=== PATIENT | male | born 1990 | race Caucasian/White ===

== ENCOUNTER 2016-06-14 13:47 | Emergency (ER) | payer MEDICAID, OTHER ==
[2016-06-14 14:30] LABS: % IMMATURE GRANULYOCYTES 0.5 % (0.0-1.1); ABSOLUTE IMMATURE GRANULOCYTES 0.03 10^3/uL (0.00-0.10); ADD DIFF? NO; ADD MORPH? NO; ADD SCAN? NO; ATYPICAL LYMPHOCYTE FLAG 0 (0-99); FRAGMENT RBC FLAG 0 (0-99); HEMATOCRIT 42.5 % (40.0-51.0); HEMOGLOBIN 14.5 g/dL (13.7-17.5); LEFT SHIFT FLG 0 (0-99); LIPEMIA HEMOLYSIS FLAG 90 (0-99); MEAN CELL HEMOGLOBIN 29.8 pg (27.9-34.1); MEAN CELL HEMOGLOBIN CONCENTR. 34.1 g/dL (32.4-36.7); MEAN CELL VOLUME 87.3 fL (81.5-99.8); MEAN PLATELET VOLUME 9.4 fL (8.7-11.7); PLATELET CLUMPS FLAG 10 (0-99); PLATELET COUNT 429 10^3/uL (150-400); RED BLOOD CELL COUNT 4.87 10^6/uL (4.40-6.38); RED CELL DISTRIBUTION WIDTH 12.1 % (11.5-15.2)
--- NOTE | 2016-06-14 14:30 | EDPHY ---
Mental Health General Previous Psychiatric History: previous inpatient psychiatric admission, substance abuse, depression Smoking Status: Never smoked Time Patient Placed on M1 Hold: 13:06 Time Medically Cleared for Psychiatric Evaluation: 15:11 Time of Transfer of Care: 17:00 To :: Chloe Course: patient remained stable over course of my shift <Leena Solis - Last Filed: 06/14/16 16:37> <Pawan Warner - Last Filed: 06/15/16 00:57> Course: patient remained stable over course of my shift <Clarence Corona - Last Filed: 06/23/16 15:00> Narrative: CHIEF COMPLAINT: M1 hold, suicidal HISTORY OF PRESENT ILLNESS: 25-year-old male presents emergency department on an M1 hold by police. Patient lives with his mom and dad and his mother was bringing him to the hospital today for suicidal statements when he escaped from the car, she called 911 and the police found him. The patient reported he had plans to buy a gun and shoot himself. The patient reports history of depression , states 1 week ago he started new medications, Latuda and an unknown other medication. Patient reports increasing depression since starting this medicine. He reports alcohol abuse though none for 2 weeks, he denies drug use. He denies auditory and visual hallucinations. Patient admits to suicidal ideations. REVIEW OF SYSTEMS: A comprehensive 10 point review of systems is otherwise negative aside from elements mentioned in the history of present illness. Physical Exam Gen: Alert and Oriented, NAD HEENT: PERRL, moist mucous membranes NECK: no meningismus CV: regular rate and regular rhythm PULM: CTAB, no wheezes ABDOMEN: soft, non tender to palpation, BS present BACK: No CVA tenderness NEURO: Neurologically grossly intact EXTREMITIES: normal appearing SKIN: Self-inflicted superficial lacerations to left wrist and forearm PSYCH: Flat affect, suicidal ideation, does not make eye contact (Leena Solis) Medical Decision Makin- Report passed on to Dr. Corona at the end of my shift pending eval. ( Leena Solis) This patient has been accepted at [facility]. Dr. Dillard has accepted the patient be appropriately transfer there. Emtala form filled out. (Pawan Warner) Patient has been evaluated by mental health and they would like to place him in a psychiatric unit. He is awaiting placement Dr. Sharpe at 2330. (Clarence Corona) - Objective Vital Signs: Initial Vital Signs Temperature (C) 36.5 C 06/14/16 13:53 Heart Rate 106 H 06/14/16 13:53 Respiratory Rate 20 06/14/16 13:53 Blood Pressure 98/59 L 06/14/16 13:53 O2 Sat (%) 98 06/14/16 13:53 O2 Delivery Mode Room Air Allergies/Adverse Reactions: No Known Allergies Allergy (Verified 06/14/16 13:52) Home Medications: Medication Instructions Recorded Hydroxyzine Pamoate [Vistaril] 25 mg PO Q4H PRN 06/14/16 Lurasidone HCl [Latuda] 40 mg PO DAILY@1800 06/14/16 Medications Given: Discontinued Medications Nicotine Polacrilex (Nicorette) 2 mg B ONCE ONE Stop: 06/14/16 18:01 Last Admin: 06/14/16 18:10 Dose: 2 mg Laboratory Results: Laboratory Results 06/14/16 14:05 06/14/16 14:05 06/14/16 06/14/16 14:10 14:05 WBC 6.38 10^3/uL (3.80-9.50) RBC 4.87 10^6/uL (4.40-6.38) Hgb 14.5 g/dL (13.7-17.5) Hct 42.5 % (40.0-51.0) MCV 87.3 fL (81.5-99.8) MCH 29.8 pg (27.9-34.1) MCHC 34.1 g/dL (32.4-36.7) RDW 12.1 % (11.5-15.2) Plt Count 429 H 10^3/uL (150-400) MPV 9.4 fL (8.7-11.7) Neut % (Auto) 63.0 % (39.3-74.2) Lymph % (Auto) 29.0 % (15.0-45.0) [place] % (Auto) 6.6 % (4.5-13.0) Eos % (Auto) 0.6 % (0.6-7.6) Baso % (Auto) 0.3 % (0.3-1.7) Nucleat RBC Rel Count 0.0 % (0.0-0.2) Absolute Neuts (auto) 4.02 10^3/uL (1.70-6.50) Absolute Lymphs (auto) 1.85 10^3/uL (1.00-3.00) Absolute Monos (auto) 0.42 10^3/uL (0.30-0.80) Absolute Eos (auto) 0.04 10^3/uL (0.03-0.40) Absolute Basos (auto) 0.02 10^3/uL (0.02-0.10) Absolute Nucleated RBC 0.00 10^3/uL (0-0.01) Immature Gran % 0.5 % (0.0-1.1) Immature Gran # 0.03 10^3/uL (0.00-0.10) Sodium 141 mEq/L (134-144) Potassium 4.6 mEq/L (3.5-5.2) Chloride 105 mEq/L (97-110) Carbon Dioxide 25 mEq/l (22-31) Anion Gap 11 mEq/L (8-16) BUN 12 mg/dL (7-23) Creatinine 0.9 mg/dL (0.7-1.3) Estimated GFR > 60 Glucose 91 mg/dL (70-100) Calcium 9.7 mg/dL (8.5-10.4) Urine Opiates Screen NEGATIVE (NEGATIVE) Urine Barbiturates NEGATIVE (NEGATIVE) Ur Phencyclidine Scrn NEGATIVE (NEGATIVE) Ur Amphetamine Screen NEGATIVE (NEGATIVE) U Benzodiazepines Scrn NEGATIVE (NEGATIVE) Urine Cocaine Screen NEGATIVE (NEGATIVE) U Marijuana (THC) Screen NEGATIVE (NEGATIVE) Ethyl Alcohol < 10 mg/dL (0-10) Departure <Leena Solis - Last Filed: 06/14/16 16:37> <Pawan Warner - Last Filed: 06/15/16 00:57> <Clarence Corona - Last Filed: 06/23/16 15:00> - Departure Disposition: Other Psych, Not [place] Clinical Impression: Severe major depression Condition: Fair Referrals: NONE *PRIMARY CARE P,. [Primary Care Provider] - As per Instructions
[2016-06-14 14:39] LABS: CALCIUM 9.7 mg/dL (8.5-10.4); CARBON DIOXIDE 25 mEq/l (22-31); CREATININE 0.9 mg/dL (0.7-1.3); ETHANOL SERUM < 10 mg/dL (0-10); GLOMERULAR FILTRATION RATE > 60; GLUCOSE 91 mg/dL (70-100); POTASSIUM 4.6 mEq/L (3.5-5.2); SODIUM 141 mEq/L (134-144)
[2016-06-14 14:56] LABS: ANION GAP 11 mEq/L (8-16); CHLORIDE 105 mEq/L (97-110)
[2016-06-14 17:36] VITALS: RESP 16; O2SAT 96
[2016-06-14] MEDS ORDERED: NICOTINE POLACRILEX 2 MG GUM B PRN (17:58)
[2016-06-14] MEDS ORDERED: NICOTINE POLACRILEX 2 MG GUM B ONE (18:00)
[2016-06-14 22:58] VITALS: PULSE 88; TEMP 98.1
[2016-06-15 02:21] VITALS: BP 113/84
== END 2016-06-15 02:57 ==
DX: F32.2 Major depressive disorder, single episode, severe without psychotic features (principal)
CPT/HCPCS: 80305; G0480

== ENCOUNTER 2016-07-12 20:41 | Emergency (ER) | payer MEDICAID ==
[2016-07-12] MEDS ORDERED: ONDANSETRON 4 MG/2 ML VIAL IVP ONE ×2 (21:04→21:20)
[2016-07-12] MEDS ORDERED: NS 1,000 ML IV ONE (21:05)
[2016-07-12 21:08] LABS: % IMMATURE GRANULYOCYTES 0.8 % (0.0-1.1); ABSOLUTE IMMATURE GRANULOCYTES 0.12 10^3/uL (0.00-0.10); ADD DIFF? NO; ADD MORPH? NO; ADD SCAN? NO; ATYPICAL LYMPHOCYTE FLAG 0 (0-99); FRAGMENT RBC FLAG 0 (0-99); HEMATOCRIT 46.3 % (40.0-51.0); HEMOGLOBIN 16.2 g/dL (13.7-17.5); LEFT SHIFT FLG 0 (0-99); LIPEMIA HEMOLYSIS FLAG 90 (0-99); MEAN CELL HEMOGLOBIN 29.7 pg (27.9-34.1); MEAN PLATELET VOLUME 9.1 fL (8.7-11.7); PLATELET CLUMPS FLAG 10 (0-99); PLATELET COUNT 504 10^3/uL (150-400); RED BLOOD CELL COUNT 5.45 10^6/uL (4.40-6.38); RED CELL DISTRIBUTION WIDTH 11.4 % (11.5-15.2)
--- NOTE | 2016-07-12 21:14 | EDPHY ---
H & P Stated Complaint: Caffeine pills, 200mg aprox 30 tabs, 1400hrs, SI - Personal History Current Tetanus/Diphtheria Vaccine: Unsure Tetanus Vaccine Date: within last couple of years - Medical/Surgical History Hx Asthma: No Hx Chronic Respiratory Disease: No Hx Diabetes: No Hx Cardiac Disease: No Hx Renal Disease: No Hx Cirrhosis: No Hx Alcoholism: No Hx HIV/AIDS: No Hx Splenectomy or Spleen Trauma: No Other PMH: ADD, depression. - Social History Smoking Status: Never smoked Time Seen by Provider: 07/12/16 21:01 Constitutional: Initial Vital Signs Temperature (C) 36.3 C 07/12/16 20:45 Heart Rate 138 H 07/12/16 20:45 Respiratory Rate 18 07/12/16 20:45 Blood Pressure 109/73 07/12/16 20:45 O2 Sat (%) 96 07/12/16 20:45 O2 Delivery Mode Room Air Allergies/Adverse Reactions: No Known Allergies Allergy (Verified 07/12/16 20:50) Home Medications: Medication Instructions Recorded Hydroxyzine Pamoate [Vistaril] 25 mg PO Q4H PRN 06/14/16 Lurasidone HCl [Latuda] 40 mg PO DAILY@1800 06/14/16 Medical Decision Making ED Course/Re-evaluation: CHIEF COMPLAINT: Psychiatric evaluation HISTORY OF PRESENT ILLNESS: This patient is a 25 year old male who presents to the Emergency Department following ingestion of thirty 200mg caffeine pills at approximately 1600 today. He reports that he took the pills in attempt to commit suicide. He has a history of depression and suicidal ideation and was recently seen in the ED on M1 hold in June. Upon arrival, he complains of nausea and vomiting. Denies chest pain or pressure, tremors, or additional complaints. REVIEW OF SYSTEMS: A 10 point review of systems was performed and is negative with the exception of the elements mentioned in the history of present illness. PHYSICAL EXAM: General Appearance: Alert, well hydrated, appropriate, and non-toxic appearing. Head: Atraumatic without scalp tenderness or obvious injury Eyes: Pupils equal, round, reactive to light and accommodation, EOMI, no trauma , no injection. Ears: Clear bilaterally, no perforation, normal landmarks Nose: Atraumatic, no rhinorrhea, clear. Throat: There is no erythema or exudates, no lesions, normal tonsils, mucus membranes moist. Neck: Supple, 2+ carotid upstroke, nontender, no lymphadenopathy. Respiratory: No retractions, no distress, no wheezes, and no accessory muscle use. Lungs are clear to auscultation bilaterally. Cardiovascular: Regular rate and rhythm, no murmurs, rubs, or gallops. Bilateral carotid, radial, dorsalis pedis, and posterior tibial pulses intact. Good capillary refill all extremities. Gastrointestinal: Abdomen is soft, nontender, non-distended, no masses, no rebound, no guarding, no peritoneal signs. Coffee ground emesis. Musculoskeletal: Normal active ROM of all extremities, atraumatic. Neurological: Alert, appropriate, and interactive. The patient has normal DTRs and non-focal cranial nerves, motor, sensory, and cerebellar exam. Skin: No rashes, good turgor, no nodules on palpation. Past medical history: Depression. Past surgical history: Denies. Family history: Non-contributory. Social history: Mother and father at bedside. EKG INTERPRETATION: The 12 lead EKG was interpreted by myself: Sinus tachycardia, rate 115; left anterior fascicular block; borderline prolonged QT interval.See hard copy and/ or "tracemaster" electronic copy for interpretation. DIFFERENTIAL DIAGNOSIS: The differential diagnosis for the patient's depression included but was not limited to functional and major depression, situational depression, medication side effect, drugs, and alcohol abuse. MEDICAL DECISION MAKING: Patient is in no acute distress and is hemodynamically stable. We are awaiting psychiatric team's evaluation. Patient has known history of psychiatric disorders and is here for evaluation. IV established. 8mg IV Zofran, 1mg IV Ativan, and 1L IV NS administered. ( John Preston) 0656: No acute events overnight. Patient Signed over to Dr. Roberts. Patient is medically cleared pending evaluation. (Pawan Warner) 7:00 a.m.-I assumed care of this patient at shift change. He. He was seen by mental health on M1 hold. They are working for inpatient disposition. 1pm--c/o sore throat after vomiting last night. Tylenol given. Calm and cooperative. Awaiting inpt placement. Signed over to Dr. Quintana at shift change. (Dali Roberts) Other Provider: Care assumed from Dr. Roberts at 2:40 p.m. with plan for inpatient psychiatric hospitalization for suicidal ideation and overdose. The patient will be transferred to [facility] for inpatient psychiatric hospital bed not available at this facility, in stable condition; accepting physician is Dr. Johnson. (Gerard Quintana) - Data Points Laboratory Results: Laboratory Results 07/13/16 01:15 07/13/16 01:00 Medications Given: Discontinued Medications Acetaminophen (Tylenol) 650 mg PO EDNOW ONE Stop: 07/13/16 08:53 Last Admin: 07/13/16 08:56 Dose: 650 mg Acetaminophen (Tylenol) 650 mg PO EDNOW ONE Stop: 07/13/16 13:23 Last Admin: 07/13/16 13:27 Dose: 650 mg Famotidine (Pepcid) 40 mg IVP EDNOW ONE Stop: 07/12/16 22:55 Last Admin: 07/12/16 23:15 Dose: 40 mg Sodium Chloride (Ns) 1,000 mls @ 0 mls/hr IV ONCE ONE PRN Reason: Wide Open Stop: 07/12/16 21:06 Last Admin: 07/12/16 21:20 Dose: 1,000 mls Sodium Chloride (Ns) 1,000 mls @ 0 mls/hr IV ONCE ONE PRN Reason: Wide Open Stop: 07/13/16 03:18 Last Admin: 07/13/16 03:22 Dose: 1,000 mls Lorazepam (Ativan Injection) 1 mg IVP EDNOW ONE Stop: 07/12/16 21:44 Last Admin: 07/12/16 21:45 Dose: 1 mg Lorazepam (Ativan) 1 mg PO EDNOW ONE Stop: 07/13/16 18:00 Last Admin: 07/13/16 18:00 Dose: 1 mg Ondansetron HCl (Zofran) 4 mg IVP EDNOW ONE Stop: 07/12/16 21:05 Last Admin: 07/12/16 21:00 Dose: 4 mg Ondansetron HCl (Zofran) 4 mg IVP EDNOW ONE Stop: 07/12/16 21:21 Last Admin: 07/12/16 21:20 Dose: 4 mg Ondansetron HCl (Zofran) 4 mg IVP EDNOW ONE Stop: 07/13/16 08:05 Last Admin: 07/13/16 08:12 Dose: 4 mg Departure - Departure Disposition: Other Psych, Not [place] Clinical Impression: Suicidal ideation Intentional caffeine overdose Qualifiers: Encounter type: initial encounter Qualified Code(s): T43.612A - Poisoning by caffeine, intentional self-harm, initial encounter Condition: Fair Referrals: UNSURE,OF PCP [Other] - As per Instructions Report Scribed for: John Preston Report Scribed by: Shelly Crespo Date of Report: 07/12/16 Time of Report: 21:14
[2016-07-12 21:22] LABS: ANION GAP 29 mEq/L (8-16); CALCIUM 10.5 mg/dL (8.5-10.4); CARBON DIOXIDE 14 mEq/l (22-31); CHLORIDE 100 mEq/L (97-110); CREATININE 1.1 mg/dL (0.7-1.3); ETHANOL SERUM < 10 mg/dL (0-10); GLOMERULAR FILTRATION RATE > 60; GLUCOSE 261 mg/dL (70-100); POTASSIUM 3.2 mEq/L (3.5-5.2); SALICYLATE < 1.0 mg/dL (2.0-20.0); SODIUM 143 mEq/L (134-144)
--- NOTE | 2016-07-12 21:33 | CPEKG ---
Heart Rate: 115 RR Interval: 522 P-R Interval: 148 QRSD Interval: 92 QT Interval: 360 QTC Interval: 498 P Jesse: -32 QRS Jesse: 248 T Wave Jesse: 48 EKG Severity - ABNORMAL ECG - EKG Impression: SINUS TACHYCARDIA EKG Impression: LEFT ANTERIOR FASCICULAR BLOCK EKG Impression: PROLONGED QT INTERVAL Electronically Signed By: John Preston 12-Jul-2016 23:04:11
[2016-07-12] MEDS ORDERED: LORazepam 2 MG/ML INJ IVP ONE (21:43)
[2016-07-12 22:00] LABS: MAGNESIUM 2.1 mg/dL (1.6-2.3)
[2016-07-12] MEDS ORDERED: FAMOTIDINE 20 MG/2 ML SDV IVP ONE (22:54)
[2016-07-13 00:14] VITALS: RESP 18
[2016-07-13 01:18] LABS: % IMMATURE GRANULYOCYTES 0.4 % (0.0-1.1); ABSOLUTE IMMATURE GRANULOCYTES 0.07 10^3/uL (0.00-0.10); ADD DIFF? NO; ADD MORPH? NO; ADD SCAN? NO; ATYPICAL LYMPHOCYTE FLAG 0 (0-99); FRAGMENT RBC FLAG 0 (0-99); HEMATOCRIT 42.3 % (40.0-51.0); HEMOGLOBIN 15.3 g/dL (13.7-17.5); LEFT SHIFT FLG 0 (0-99); LIPEMIA HEMOLYSIS FLAG 90 (0-99); MEAN CELL HEMOGLOBIN 30.7 pg (27.9-34.1); MEAN CELL HEMOGLOBIN CONCENTR. 36.2 g/dL (32.4-36.7); MEAN CELL VOLUME 84.8 fL (81.5-99.8); MEAN PLATELET VOLUME 9.2 fL (8.7-11.7); PLATELET CLUMPS FLAG 0 (0-99); PLATELET COUNT 428 10^3/uL (150-400); RED BLOOD CELL COUNT 4.99 10^6/uL (4.40-6.38); RED CELL DISTRIBUTION WIDTH 11.3 % (11.5-15.2)
[2016-07-13 01:22] LABS: ANION GAP 22 mEq/L (8-16); CALCIUM 10.2 mg/dL (8.5-10.4); CARBON DIOXIDE 15 mEq/l (22-31); CHLORIDE 109 mEq/L (97-110); CREATININE 0.9 mg/dL (0.7-1.3); GLOMERULAR FILTRATION RATE > 60; GLUCOSE 181 mg/dL (70-100); POTASSIUM 3.7 mEq/L (3.5-5.2); SALICYLATE < 1.0 mg/dL (2.0-20.0); SODIUM 146 mEq/L (134-144)
[2016-07-13] MEDS ORDERED: NS 1,000 ML IV ONE (03:17)
[2016-07-13] MEDS ORDERED: ONDANSETRON 4 MG/2 ML VIAL IVP ONE (08:04)
[2016-07-13] MEDS ORDERED: ACETAMINOPHEN 325 MG TAB PO ONE ×2 (08:52→13:22)
[2016-07-13] MEDS ORDERED: LORazepam 1 MG TAB ONE (17:57)
[2016-07-13] MEDS ORDERED: LORazepam 1 MG TAB PO ONE ×2 (17:59→22:21)
[2016-07-13 22:37] VITALS: BP 122/77; PULSE 104; TEMP 97.5; O2SAT 96
== END 2016-07-13 22:55 ==
DX: T43.612A Poisoning by caffeine, intentional self-harm, initial encounter (principal)
CPT/HCPCS: 80305; 96374; G0480; J2405

== ENCOUNTER 2017-07-23 01:54 | Observation (INO) | payer MEDICAID ==
[2017-07-23] MEDS ORDERED: NS 1,000 ML IV ONE ×3 (02:04→04:32)
[2017-07-23] MEDS ORDERED: LORazepam 2 MG/ML INJ IVP ONE ×4 (02:04→04:24)
--- NOTE | 2017-07-23 02:09 | CPEKG ---
Heart Rate: 124 RR Interval: 484 P-R Interval: 168 QRSD Interval: 86 QT Interval: 292 QTC Interval: 420 P [place]: 49 QRS [place]: 84 T Wave [place]: 19 EKG Severity - OTHERWISE NORMAL ECG - EKG Impression: SINUS TACHYCARDIA Electronically Signed By: John Preston 24-Jul-2017 21:33:54
[2017-07-23 02:14] LABS: PLATELET COUNT 370 10^3/uL (150-400)
--- NOTE | 2017-07-23 02:16 | EDPHY ---
H & P Stated Complaint: Sharp Chest pains after drinking 2 4 Lokos Time Seen by Provider: 07/23/17 01:55 HPI/ROS: HPI CHIEF COMPLAINT: Alcohol intoxication, chest pain, tachycardia HISTORY OF PRESENT ILLNESS: This patient 27-year-old male, history of schizophrenia, he presents emergency room with tachycardia and chest pain after drinking multiple 4 locos. It is unclear exactly how much she drank. The patient answers to most of my questions "I DONT KNOW" I asked him how long he has had chest pain or chest discomfort across his chest and he reports to me "I dont know" also reports that he does not know how much she drank. He tells me does not know of his medical problems. Due to this patient is a very poor historian. Past Medical History: Schizophrenia Past Surgical History: Denies recent surgery Social History: Admits to drinking large amount of alcohol and 4 LOCOS tonight unknown of drug use. Family History: ROS REVIEW OF SYSTEMS: Limited review of systems due to patient answering my questions with 'I DONT KNOW" Exam Constitutional intoxicated, smells of alcohol triage nursing summary reviewed, vital signs reviewed, awake/alert. Eyes normal conjunctivae and sclera, EOMI, PERRLA. HENT normal inspection, atraumatic, moist mucus membranes, no epistaxis, neck supple/ no meningismus, no raccoon eyes. Respiratory clear to auscultation bilaterally, normal breath sounds, no respiratory distress, no wheezing. Cardiovascular tachycardic regular rhythm, no murmur, no edema, distal pulses normal. Gastrointestinal soft, non-tender, no rebound, no guarding, normal bowel sounds, no distension, no pulsatile mass. Genitourinary no CVA tenderness. Musculoskeletal no midline vertebral tenderness, full range of motion, no calf swelling, no tenderness of extremities, no meningismus, good pulses, neurovascularly intact. Skin pink, warm, & dry, no rash, skin atraumatic. Neurologic awake, alert and oriented x 3, AAOx3, moves all 4 extremities equally, motor intact, sensory intact, CN II-XII intact, normal cerebellar, normal vision, normal speech. Psychiatric normal mood/affect. Heme/Lymph/Immune no lymphadenopathy. Differential Diagnosis: Includes but is not limited to in a particular order acute alcohol intoxication, dehydration, electrolyte abnormality, tachycardia due to stimulant use, acute coronary syndrome, PE, pneumonia, pneumothorax, drug intoxication Medical Decision Making: Plan for this patient IV establishment full environmental monitoring technician obtain EKG, check blood level of alcohol, drug screen, rule out acute coronary syndrome. Chest x-ray. Re-evaluation: EKG interpretation by me on record in [employer] system. Impression time of EKG 2:06 a.m., sinus tachycardia rate of 124. No ST elevation no ST depression or significant T-wave abnormalities. 0325: Serum alcohol level 161. Chest x-ray reviewed one-view shows cardiomegaly poor inspiratory effort and a widened mediastinum. Will proceed with CT angiogram of chest rule out aortic dissection pulmonary embolism or significant pericardial effusion. 0338: Despite 2 L of fluid and 2 mg Ativan IV still tachycardic. CT angiogram with contrast of the chest negative for aortic dissection or pulmonary embolism. Called to me by Dr. Tena. 0432: Patient has persistent tachycardia. It is improved with IV fluids and IV Ativan however despite multiple rounds of Ativan and multiple L of fluid the patient be admitted to the hospitalist service for ongoing tachycardia. He has a nonischemic EKG, negative troponin, negative D-dimer, CT angiogram of the chest does not show aortic dissection or PE. Plan will be for admission to the hospital service for tachycardia most likely induced by caffeine or a consumption of 4 locos 0448AM: Patient remains tachycardic. Drug screen pending. I question if he ingested other substances besides 4LOCOS. Patient be admitted to the hospital for tachycardia. 0509AM: Patient's heart rate down to 132. He is resting comfortably at this time. Admitted to the hospitalist service for persistent tachycardia. Drug screen pending at this time. Source: Patient, EMS - Personal History Current Tetanus/Diphtheria Vaccine: Unsure Current Tetanus Diphtheria and Acellular Pertussis (TDAP): Unsure Tetanus Vaccine Date: within last couple of years - Medical/Surgical History Hx Asthma: No Hx Chronic Respiratory Disease: No Hx Diabetes: No Hx Cardiac Disease: No Hx Renal Disease: No Hx Cirrhosis: No Hx Alcoholism: No Hx HIV/AIDS: No Hx Splenectomy or Spleen Trauma: No Other PMH: ADD, depression. - Social History Smoking Status: Never smoked Constitutional: Initial Vital Signs Temperature (C) 37 C 07/23/17 01:54 Heart Rate 126 H 07/23/17 01:54 Respiratory Rate 22 H 07/23/17 01:54 Blood Pressure 138/95 H 07/23/17 01:54 O2 Sat (%) 95 07/23/17 01:54 O2 Delivery Mode Room Air Allergies/Adverse Reactions: No Known Allergies Allergy (Verified 07/12/16 20:50) Home Medications: Medication Instructions Recorded Dextroamphetamine/Amphetamine 30 mg PO DAILY 07/23/17 [Adderall 30 mg Tablet] Dextroamphetamine/Amphetamine 20 mg PO HS 07/23/17 [Dextroamp-Amphetamin 20 mg Tab] Multivitamins [Multivitamin (*)] 1 each PO DAILY 07/23/17 [place]-3/Dha/Epa/Fish Oil [[place]-3 1 each PO BID 07/23/17 Fish Oil Softgel] Venlafaxine HCl [Venlafaxine HCl 300 mg PO DAILY 07/23/17 ER] lamoTRIgine [LaMICtal] 50 mg PO DAILY 07/23/17 Medical Decision Making - Diagnostics Imaging Results: Imaging Impressions Chest/Thorax CTA 07/23/17 03:27 Impression: 1. Normal CT angiogram of the thoracic aorta and pulmonary arterial system. 2. No pericardial effusion or mediastinal lymphadenopathy. The study was performed as an emergency on-call case and discussed by telephone with Dr. Pawan Warner at 0422 hrs. The final interpretation is concordant with the original communication. - Data Points Laboratory Results: Laboratory Results 07/23/17 02:00 07/23/17 02:00 Medications Given: Discontinued Medications Sodium Chloride (Ns) 1,000 mls @ 0 mls/hr IV EDNOW ONE; Wide Open PRN Reason: Protocol Stop: 07/23/17 02:05 Last Admin: 07/23/17 02:12 Dose: 1,000 mls Sodium Chloride (Ns) 1,000 mls @ 0 mls/hr IV ONCE ONE PRN Reason: Wide Open Stop: 07/23/17 02:21 Last Admin: 07/23/17 02:33 Dose: 1,000 mls Sodium Chloride (Ns) 1,000 mls @ 250 mls/hr IV ONCE ONE Stop: 07/23/17 08:31 Last Admin: 07/23/17 07:35 Dose: 1,000 mls Lamotrigine (Lamictal) 50 mg PO DAILY TORREY Stop: 01/19/18 12:59 Last Admin: 07/23/17 14:05 Dose: 50 mg Lorazepam (Ativan Injection) 1 mg IVP EDNOW ONE Stop: 07/23/17 02:05 Last Admin: 07/23/17 02:11 Dose: 1 mg Lorazepam (Ativan Injection) 1 mg IVP EDNOW ONE Stop: 07/23/17 02:21 Last Admin: 07/23/17 02:30 Dose: 1 mg Lorazepam (Ativan Injection) 1 mg IVP EDNOW ONE Stop: 07/23/17 03:36 Last Admin: 07/23/17 03:44 Dose: 1 mg Lorazepam (Ativan Injection) 1 mg IVP EDNOW ONE Stop: 07/23/17 04:25 Last Admin: 07/23/17 04:28 Dose: 1 mg Venlafaxine HCl (Effexor Xr) 300 mg PO DAILY TORREY Stop: 01/19/18 12:59 Last Admin: 07/23/17 14:05 Dose: 300 mg Departure - Departure Disposition: Home, Routine, Self-Care Clinical Impression: Tachycardia, Anxiety Alcohol intoxication Qualifiers: Complication of substance-induced condition: uncomplicated Qualified Code(s): F10.920 - Alcohol use, unspecified with intoxication, uncomplicated Condition: Good
[2017-07-23 02:23] LABS: INR 0.97 (0.83-1.16); PROTIME(PATIENT) 13.1 SEC (12.0-15.0)
[2017-07-23 02:24] LABS: CREATINE KINASE 166 IU/L (0-224)
[2017-07-23] MEDS ORDERED: IOPAMIDOL (ISOVUE 370) 100 ML BTL IV ONE (03:39)
[2017-07-23] MEDS ORDERED: LORazepam 2 MG/ML INJ IVP PRN (04:32)
[2017-07-23] MEDS ORDERED: ONDANSETRON 4 MG/2 ML VIAL IVP PRN (04:32)
[2017-07-23] MEDS ORDERED: ONDANSETRON DISINTEGRATING 4 MG TAB PO PRN (04:32)
[2017-07-23] MEDS ORDERED: ACETAMINOPHEN 325 MG TAB PO PRN (04:32)
--- NOTE | 2017-07-23 05:27 | PDGENHP ---
History and Physical - Chief Complaint Tachycardia - History of Present Illness 27 yo M w/ hx of depression and polysubstance abuse presents with tachycardia and agitation. Patient states he drank 2 Four [place] today. He denies taking any stimulants aside from his prescribed Adderall. Review of previous d/c summary describes hx of cocaine and methamphetamine abuse. Patient complains of racing heart and anxiety currently. He is somewhat agitated and difficult to redirect. History Information - Allergies/Home Medication List Allergies/Adverse Reactions: No Known Allergies Allergy (Verified 07/12/16 20:50) Home Medications: Hydroxyzine Pamoate [Vistaril] 25 mg PO Q4H PRN 06/14/16 [Last Taken Unknown] Lurasidone HCl [Latuda] 40 mg PO DAILY@1800 06/14/16 [Last Taken Unknown] Dextroamphetamine/Amphetamine [Adderall 30 mg Tablet] 07/23/17 [Last Taken Unknown] Lamictal 07/23/17 [Last Taken Unknown] [place]-3 07/23/17 [Last Taken Unknown] I have personally reviewed and updated: family history, medical history - Past Medical History Additional medical history: Depression - Family History Additional family history: Denies family hx of cardiac disorders - Social History Smoking Status: Never smoked Review of Systems Review of Systems: ROS: 10pt was reviewed & negative except for what was stated in HPI & below Physical Exam Physical Exam: Temp Pulse Resp BP Pulse Ox 37 C 136 H 22 H 121/85 H 94 07/23/17 01:54 07/23/17 05:15 07/23/17 05:15 07/23/17 05:15 07/23/17 05:15 Constitutional: obese, unkempt Eyes: PERRL, EOMI, other (Dilated pupils) Ears, Nose, Mouth, Throat: moist mucous membranes, no oral mucosal ulcers Cardiovascular: no murmur, rub, or gallop, tachycardia Respiratory: no respiratory distress, no rales or rhonchi Gastrointestinal: normoactive bowel sounds, soft, non-tender abdomen Skin: warm, normal color Neurologic: AAOx3, CN II-XII Intact Psychiatric: interacting appropriately, anxious Lab Data & Imaging Review 07/23/17 02:00 07/23/17 02:00 WBC 7.46 10^3/uL (3.80-9.50) 07/23/17 02:00 RBC 5.67 10^6/uL (4.40-6.38) 07/23/17 02:00 Hgb 16.9 g/dL (13.7-17.5) 07/23/17 02:00 Hct 48.8 % (40.0-51.0) 07/23/17 02:00 MCV 86.1 fL (81.5-99.8) 07/23/17 02:00 MCH 29.8 pg (27.9-34.1) 07/23/17 02:00 MCHC 34.6 g/dL (32.4-36.7) 07/23/17 02:00 RDW 13.6 % (11.5-15.2) 07/23/17 02:00 Plt Count 370 10^3/uL (150-400) 07/23/17 02:00 MPV 8.9 fL (8.7-11.7) 07/23/17 02:00 Neut % (Auto) 46.7 % (39.3-74.2) 07/23/17 02:00 Lymph % (Auto) 38.2 % (15.0-45.0) 07/23/17 02:00 [place] % (Auto) 13.3 % (4.5-13.0) H 07/23/17 02:00 Eos % (Auto) 0.8 % (0.6-7.6) 07/23/17 02:00 Baso % (Auto) 0.5 % (0.3-1.7) 07/23/17 02:00 Nucleat RBC Rel Count 0.0 % (0.0-0.2) 07/23/17 02:00 Absolute Neuts (auto) 3.48 10^3/uL (1.70-6.50) 07/23/17 02:00 Absolute Lymphs (auto) 2.85 10^3/uL (1.00-3.00) 07/23/17 02:00 Absolute Monos (auto) 0.99 10^3/uL (0.30-0.80) H 07/23/17 02:00 Absolute Eos (auto) 0.06 10^3/uL (0.03-0.40) 07/23/17 02:00 Absolute Basos (auto) 0.04 10^3/uL (0.02-0.10) 07/23/17 02:00 Absolute Nucleated RBC 0.00 10^3/uL (0-0.01) 07/23/17 02:00 Immature Gran % 0.5 % (0.0-1.1) 07/23/17 02:00 Immature Gran # 0.04 10^3/uL (0.00-0.10) 07/23/17 02:00 PT 13.1 SEC (12.0-15.0) 07/23/17 02:00 INR 0.97 (0.83-1.16) 07/23/17 02:00 APTT 25.7 SEC (23.0-38.0) 07/23/17 02:00 D-Dimer < 0.27 ug/mLFEU (0.00-0.50) 07/23/17 02:00 Sodium 144 mEq/L (135-145) 07/23/17 02:00 Potassium 3.7 mEq/L (3.5-5.2) 07/23/17 02:00 Chloride 101 mEq/L (97-110) 07/23/17 02:00 Carbon Dioxide 28 mEq/l (22-31) 07/23/17 02:00 Anion Gap 15 mEq/L (8-16) 07/23/17 02:00 BUN 3 mg/dL (7-23) L 07/23/17 02:00 Creatinine 0.8 mg/dL (0.7-1.3) 07/23/17 02:00 Estimated GFR > 60 07/23/17 02:00 Glucose 95 mg/dL (70-100) 07/23/17 02:00 Calcium 8.9 mg/dL (8.5-10.4) 07/23/17 02:00 Magnesium 1.9 mg/dL (1.6-2.3) 07/23/17 02:00 Total Bilirubin 0.4 mg/dL (0.1-1.4) 07/23/17 02:00 Conjugated Bilirubin 0.4 mg/dL (0.0-0.5) 07/23/17 02:00 Unconjugated Bilirubin 0.0 mg/dL (0.0-1.1) 07/23/17 02:00 AST 69 IU/L (17-59) H 07/23/17 02:00 ALT 124 IU/L (21-72) H 07/23/17 02:00 Alkaline Phosphatase 133 IU/L (38-126) H 07/23/17 02:00 Creatine Kinase 166 IU/L (0-224) 07/23/17 02:00 CK-MB (CK-2) Fraction 0.97 ng/mL (0.00-3.19) 07/23/17 02:00 Troponin I < 0.012 ng/mL (0.000-0.034) 07/23/17 02:00 NT-Pro-B Natriuret Pep < 11 pg/mL (0-125) 07/23/17 02:00 Total Protein 7.3 g/dL (6.3-8.2) 07/23/17 02:00 Albumin 4.4 g/dL (3.5-5.0) 07/23/17 02:00 Lipase 34 IU/L (23-300) 07/23/17 02:00 Salicylates < 1.0 mg/dL (2.0-20.0) L 07/23/17 02:00 Acetaminophen < 10 mcg/mL (10-30) L 07/23/17 02:00 Ethyl Alcohol 161 mg/dL (0-10) H 07/23/17 02:00 Imaging Review: CTA chest (Prelim) Normal vasculature Bands of atelactasis bibasilar Spoke w Dr Sharpe at 422 Finer Visualized and Interpreted EKG results: Yes EKG Interpretation: Positive for: other (Sinus tachycardia) Assessment & Plan Assessment: 27 yo M w/ hx of depression and polysubstance abuse presents with tachycardia. Plan: 1. Sinus tachycardia - Most likely 2/2 ingestion. Patient admits to ETOH ingestion as well as his prescribed. He denies ingestion of any other stimulant at this time. HR 130s at the time of my evaluation. - Admit to PCU for observation - S/p 2L IVF in ED, will give an additional liter now - Monitor on telemetry - Utox 2. Hx depression - On multiple psychiatric medications, need reconciliation. 3. Hx polysubstance abuse - Per last d/c summary, has hx of cocaine and methamphetamine abuse. Diet - Regular Code - Full Ppx - Low risk Dispo - Admit under observation status
[2017-07-23 10:47] VITALS: BP 136/98; PULSE 139; RESP 22; TEMP 98.4; O2SAT 95
[2017-07-23] MEDS ORDERED: VENLAFAXINE XR 150 MG CAP PO SCH (13:00)
[2017-07-23] MEDS ORDERED: lamoTRIgine 25 MG TAB PO SCH (13:00)
--- NOTE | 2017-07-23 16:57 | PDDCSUM ---
Discharge Summary Discharge Summary: HPI/Hospital Course: the pt is a 27 yo male who was admitted with tachycardia and malaise. He was monitored overnight, provided IVF, and feels much better. He is however still with some tachycardia. He admits to ETOH use, heavy, last use was last night. He has a tremor. We discussed his ETOH intake and I offered further hospitalization, but he does not want this. He is requesting discharge. W/u thus far has been negative. He does have a hx of Depression with prior hospitalization inpatient psych at [facility] reportedly for suicide attempt. He reports that he is not suicidal. He is not homocidal. He does not appear to be a threat. He wants to go home. He lives with roommates. Given that he feels better and refuses further treatment, he will be discharged. No new meds have been provided. No home medication changes have been made. DDX: 1. Sinus tachycardia likely from ingestion vs ETOH WD 2. Hx depression - On multiple psychiatric medications, all meds continued 3. Hx polysubstance abuse - Per last d/c summary, has hx of cocaine and methamphetamine abuse. Meds: See med rec f/u: with pcp in one week total time spent on d/c is 35 mins
[2017-07-24] MEDS ORDERED: MULTIVITAMINS 1 EACH TAB PO SCH (09:00)
[2017-07-24] MEDS ORDERED: OMEGA-3 FATTY ACIDS 1,000 MG CAP PO SCH (09:00)
== END 2017-07-23 16:18 | disposition home or self-care (01) ==
LOC: EDUNIT# → F2W 05:21
PROVIDERS: ADMIT Student in an Organized Health Care Education/Training Program; ATTEND Family Medicine
DX: R00.0 Tachycardia, unspecified (principal); F10.920 Alcohol use, unspecified with intoxication, uncomplicated; E86.9 Volume depletion, unspecified; R53.81 Other malaise; Y90.6 Blood alcohol level of 120-199 mg/100 ml; F20.9 Schizophrenia, unspecified; F41.9 Anxiety disorder, unspecified; F32.9 Major depressive disorder, single episode, unspecified
CPT/HCPCS: 71045; 71275; 93005; G0378; 80307; 96374; G0480; J2060; Q9967

== ENCOUNTER 2017-08-18 21:03 | Emergency (ER) | payer MEDICAID ==
--- NOTE | 2017-08-18 21:22 | CPEKG ---
Heart Rate: 112 RR Interval: 536 P-R Interval: 148 QRSD Interval: 86 QT Interval: 324 QTC Interval: 443 P [place]: 36 QRS [place]: 77 T Wave [place]: 8 EKG Severity - OTHERWISE NORMAL ECG - EKG Impression: SINUS TACHYCARDIA Electronically Signed By: Alison Ellsworth 18-Aug-2017 23:06:37
--- NOTE | 2017-08-18 21:31 | EDPHY ---
HPI/HX/ROS/PE/MDM Narrative: CHIEF COMPLAINT: Chest pain HISTORY OF PRESENT ILLNESS: The patient is a 27 y/o male with a history of bipolar disorder arriving via EMS , complaining of intermittent chest pain, onset at 10:00, 12 hours ago after he began to drink the alcoholic drink FourLoko as well as a liquid nicotine. On , 1 month ago, he was seen in this emergency department for similar symptoms and was admitted for tachycardia. Yesterday, he felt normal. Several hours ago he began to feel short of breath. Tonight the chest pain only lasts for several seconds and the position of it changes. He has had prior episodes of chest pain, but not of shortness of breath. Admits to drinking alcohol multiple times a week, denies illicit drug use. Denies history of diabetes or liver problems. Takes medications as directed as his medications are administered at the home he lives in. No fever, chills, palpitations, abdominal pain, vomiting, diarrhea, urinary complaints, headache, lightheadedness. The patient is a poor historian as he answers in short one word answers, or by saying "I don't know". Prior medical records reviewed including ED visit with Dr. Warner on 07/23/17. REVIEW OF SYSTEMS: Aside from elements discussed in the HPI, a comprehensive 10-point review of systems was reviewed and is negative. PAST MEDICAL HISTORY: Bipolar disorder, ADD, anxiety, developmental disorder, schizophrenia SOCIAL HISTORY: Lives in [place] at a "host home", single, not employed VITAL SIGNS: Reviewed by me GENERAL: Somewhat anxious, dry mucous membranes, seems to be slightly restless. No respiratory distress. HEENT: Atraumatic. Eyes: No icterus, no injection. Mouth: dry mucous membranes. No erythema or lesions. Neck: supple with no adenopathy. LUNGS: Clear to auscultation bilaterally, no wheezes, rhonchi or rales. CARDIAC: Tachycardic with a rate of 110, no rubs, murmurs or gallops. ABDOMEN: Soft, nontender, nondistended, bowel sounds normal. BACK: No CVA tenderness. EXTREMITIES: No trauma. No edema. Range of motion is normal throughout. NEURO: Alert and oriented, grossly nonfocal. SKIN: Warm and dry, no rash. PSYCHIATRIC: Normal mentation, no agitation. Portions of this note were transcribed by a medical management specialist. I personally performed a history, physical exam, medical decision making, and confirmed accuracy of information the transcribed note. ED Course: The patient is a 27 y/o male with a history of bipolar disorder arriving via EMS , presenting with intermittent fleeting, electric shock like chest pain, onset at 10:00, 12 hours ago, after he began to drink the alcoholic drink FourLoko as well as a nicotine liquid. On exam he has very dry mucous membranes and is tachycardic. Labs, EKG, and chest x-ray ordered. 1L IV NS given. 2120: 12-LEAD EKG: Please see the full report in [facility]. My interpretation: Sinus tachycardia with a rate of 112. 2157: I reviewed patient's chest x-ray; no clear cause for sob. Does have some atelectasis. Radiologist reading pending. 4: Reassessed patient and discussed imaging and laboratory findings. Patient continues to decline IV hydration. Denies prior hx of airways disease. Denies hx of PE. We discussed the fact that he is quite tachycardic as well as hypertensive. He insists that he has not used any illicit drugs other than alcohol this evening. He reports that he feels anxious from being in the emergency department. He was given 1 mg of clonazepam. Patients heart rate declined after receiving clonazepam. Reassessed; no further shortness of breath. No chest pain. Doubt PE. No ilicit drugs in urine except amphetamines which he is prescribed. Again, recommended hydration and further observation, patient declines. States he feels fine. Wishes to be discharged. MDM: After history and physical examination, the differential for patient's presenting complaints was considered including but not limited to electrolyte abnormalities, dehydration, drug or alcohol abuse, polysubstance abuse, drug or alcohol withdrawal, renal insufficiency, pulmonary infectious causes. - Data Points Imaging Results: CXR: Impression: Poor inspiratory effort, with mild atelectasis in the left lung base. Dictated By: Daniel Aragon MD Imaging: I viewed and interpreted images myself Laboratory Results: Laboratory Results 08/18/17 21:04 08/18/17 21:04 Medications Given: Discontinued Medications Clonazepam (Klonopin) 1 mg PO EDNOW ONE Stop: 08/18/17 22:49 Last Admin: 08/18/17 23:01 Dose: 1 mg Sodium Chloride (Ns) 1,000 mls @ 0 mls/hr IV ONCE ONE; Wide Open PRN Reason: Protocol Stop: 08/18/17 21:39 Last Admin: 08/18/17 21:58 Dose: Not Given General Time Seen by Provider: 08/18/17 21:20 Initial Vital Signs: Initial Vital Signs Temperature (C) 37.4 C 08/18/17 21:03 Heart Rate 110 H 08/18/17 21:03 Respiratory Rate 24 H 08/18/17 21:03 Blood Pressure 144/112 H 08/18/17 21:03 O2 Sat (%) 95 08/18/17 21:03 O2 Delivery Mode Room Air Allergies/Adverse Reactions: No Known Allergies Allergy (Verified 07/12/16 20:50) Home Medications: Medication Instructions Recorded Dextroamphetamine/Amphetamine 30 mg PO DAILY 07/23/17 [Adderall 30 mg Tablet] Dextroamphetamine/Amphetamine 20 mg PO HS 07/23/17 [Dextroamp-Amphetamin 20 mg Tab] Multivitamins [Multivitamin (*)] 1 each PO DAILY 07/23/17 [place]-3/Dha/Epa/Fish Oil [[place]-3 1 each PO BID 07/23/17 Fish Oil Softgel] Adderall 10 mg Tablet 08/18/17 traZODone 08/18/17 Departure - Departure Disposition: Home, Routine, Self-Care Clinical Impression: Tachycardia, SOB (shortness of breath), Palpitations Instructions: Anxiety (ED), Tachycardia (ED) Additional Instructions: Follow-up with your primary doctor within 72 hours. Return to the Emergency Department for fever, chest pain, shortness of breath, increasing pain or other worsening of condition. Referrals: [facility],. [Clinic] - As per Instructions Report Scribed for: Alison Ellsworth Report Scribed by: Caity Nowak Date of Report: 08/18/17 Time of Report: 21:21
[2017-08-18] MEDS ORDERED: NS 1,000 ML IV ONE (21:38)
[2017-08-18 21:42] LABS: PLATELET COUNT 418 10^3/uL (150-400)
[2017-08-18] MEDS ORDERED: clonazePAM 1 MG TAB PO ONE (22:48)
[2017-08-18 23:27] VITALS: BP 142/92
== END 2017-08-19 00:02 | disposition home or self-care (01) ==
LOC: EDUNIT#
DX: R00.0 Tachycardia, unspecified (principal)
CPT/HCPCS: 80305; G0480

== ENCOUNTER 2017-09-13 17:06 | Emergency (ER) | payer MEDICAID ==
[2017-09-13] MEDS ORDERED: ALPRAZolam 0.25 MG TAB PO ONE ×2 (17:31→18:18)
--- NOTE | 2017-09-13 17:45 | EDPHY ---
H & P Stated Complaint: Racing heart. hx of caffine abuse. "wants a benzo" Time Seen by Provider: 09/13/17 17:08 HPI/ROS: CHIEF COMPLAINT: Rapid heart rate HISTORY OF PRESENT ILLNESS: 27-year-old male with anxiety and polysubstance abuse presents with rapid heart rate. He drank excessive caffeine this morning and then started feeling anxious. Associated with a rapid heart rate. He tried to relax, but the rapid heart rate 80 more anxious. He has been seen in this emergency department for similar symptoms previously. He is requesting Xanax. Not taking medications for anxiety currently. REVIEW OF SYSTEMS: complete 10 point ROS negative except at noted in the HPI - Personal History Current Tetanus/Diphtheria Vaccine: Yes Current Tetanus Diphtheria and Acellular Pertussis (TDAP): Yes Tetanus Vaccine Date: within last couple of years - Medical/Surgical History Hx Asthma: No Hx Chronic Respiratory Disease: No Hx Diabetes: No Hx Cardiac Disease: No Hx Renal Disease: No Hx Cirrhosis: No Hx Alcoholism: No Hx HIV/AIDS: No Hx Splenectomy or Spleen Trauma: No Other PMH: ADD, depression - Social History Smoking Status: Never smoked - Physical Exam Exam: General Appearance: Alert, anxious Eyes: Pupils equal and round, no conjunctival pallor ENT, Mouth: Mucous membranes moist Neck: Normal inspection Respiratory: Lungs are clear to auscultation Cardiovascular: Regular tachycardia Gastrointestinal: Abdomen is soft and nontender Neurological: A&O, nonfocal, normal gait Skin: Warm and dry, no rash Extremities: Normal inspection Psychiatric: Anxious Constitutional: Initial Vital Signs Temperature (C) 37.1 C 09/13/17 17:16 Heart Rate 113 H 09/13/17 17:16 Respiratory Rate 16 09/13/17 17:16 Blood Pressure 144/83 H 09/13/17 17:16 O2 Sat (%) 99 09/13/17 17:16 O2 Delivery Mode Room Air Allergies/Adverse Reactions: No Known Allergies Allergy (Verified 09/13/17 17:14) Home Medications: Medication Instructions Recorded Dextroamphetamine/Amphetamine 30 mg PO DAILY 07/23/17 [Adderall 30 mg Tablet] Dextroamphetamine/Amphetamine 20 mg PO HS 07/23/17 [Dextroamp-Amphetamin 20 mg Tab] Multivitamins [Multivitamin (*)] 1 each PO DAILY 07/23/17 [place]-3/Dha/Epa/Fish Oil [[place]-3 1 each PO BID 07/23/17 Fish Oil Softgel] Adderall 10 mg Tablet 08/18/17 traZODone 08/18/17 ALPRAZolam [Xanax 0.5 MG (*)] 0.5 mg PO TID PRN #6 tab 09/13/17 Effexor Xr 09/13/17 Klonopin 09/13/17 [place] 09/13/17 Medical Decision Making - Diagnostics EKG Interpretation: EKG interpreted by me reveals sinus tachycardia, 118, nonspecific T-wave changes in the inferior leads. Interpretation: Borderline EKG. ED Course/Re-evaluation: This patient presents with sinus tachycardia after caffeine abuse. Stat EKG reveals no evidence of ischemia. Xanax 0.5 mg orally x 2 doses given. Old medical record reviewed. He has had prior ED presentations with similar symptoms. I do not feel that further workup is indicated in this pt. Differential Diagnosis: Differential diagnosis includes though it is not limited to pneumonia, pneumothorax, pulmonary embolism, aortic dissection, pericarditis, acute coronary syndrome. - Data Points Medications Given: Discontinued Medications Alprazolam (Xanax) 0.5 mg PO EDNOW ONE Stop: 09/13/17 17:32 Last Admin: 09/13/17 17:35 Dose: 0.5 mg Alprazolam (Xanax) 0.5 mg PO EDNOW ONE Stop: 09/13/17 18:19 Last Admin: 09/13/17 18:33 Dose: 0.5 mg Departure - Departure Disposition: Home, Routine, Self-Care Clinical Impression: Anxiety, Caffeine abuse Condition: Good Instructions: Anxiety (ED) Additional Instructions: Avoid caffeinated beverages. Referrals: Nicolasa Tamayo MD [[facility] [place] Primary Care Provider] - As per Instructions (Call to make an appointment.) Prescriptions: ALPRAZolam [Xanax 0.5 MG (*)] 0.5 mg PO TID PRN #6 tab PRN Reason: Anxiety
--- NOTE | 2017-09-13 17:50 | CPEKG ---
Heart Rate: 118 RR Interval: 508 P-R Interval: 164 QRSD Interval: 90 QT Interval: 324 QTC Interval: 455 P [place]: 36 QRS [place]: 83 T Wave [place]: -5 EKG Severity - BORDERLINE ECG - EKG Impression: SINUS TACHYCARDIA EKG Impression: BORDERLINE T ABNORMALITIES, INFERIOR LEADS Electronically Signed By: Dali Roberts 13-Sep-2017 23:08:41
[2017-09-13 18:43] VITALS: BP 127/101
== END 2017-09-13 18:44 | disposition home or self-care (01) ==
LOC: EDUNIT#
DX: F41.9 Anxiety disorder, unspecified (principal); F15.10 Other stimulant abuse, uncomplicated

== ENCOUNTER 2017-09-14 07:59 | Emergency (ER) | payer MEDICAID ==
--- NOTE | 2017-09-14 08:33 | CPEKG ---
Heart Rate: 93 RR Interval: 645 P-R Interval: 148 QRSD Interval: 90 QT Interval: 352 QTC Interval: 438 P [place]: 60 QRS [place]: 4 T Wave [place]: 22 EKG Severity - NORMAL ECG - EKG Impression: SINUS RHYTHM Electronically Signed By: Alison Ellsworth 14-Sep-2017 16:27:22
[2017-09-14] MEDS ORDERED: LORazepam 2 MG/ML INJ IVP ONE (08:38)
[2017-09-14] MEDS ORDERED: NS 1,000 ML IV ONE (08:38)
[2017-09-14 09:08] LABS: PLATELET COUNT 367 10^3/uL (150-400)
--- NOTE | 2017-09-14 09:46 | EDPHY ---
HPI/HX/ROS/PE/MDM Narrative: CHIEF COMPLAINT: "I drank too much coffee" HISTORY OF PRESENT ILLNESS: This patient is a 27 year old male with history of depression and polysubstance abuse presenting following caffeine consumption. He was evaluated in this emergency department yesterday for similar symptoms including tachycardia and chest pain, also due to caffeine consumption. He was instructed to discontinue caffeine. Last night, he consumed 3-4 20oz portions of instant coffee from 12am- 7am. He denies consuming any other substances. Patient developed chest pain, which waxed and waned throughout the night but has since resolved. He also took his prescribed medication this morning including Adderall and Effexor. No alcohol sine Monday. Denies illicit drug use. Currently, he denies any chest pain. He feels mildly short of breath. He denies visual or auditory hallucinations. Denies depression, suicidal or homicidal ideation. No fever, chills, palpitations, vomiting, diarrhea, urinary complaints, headache, lightheadedness. REVIEW OF SYSTEMS: Aside from elements discussed in the HPI, a comprehensive 10-point review of systems was reviewed and is negative. PAST MEDICAL HISTORY: Depression. Adderall 15mg, 10mg. Effexor 75mg, 150mg. SOCIAL HISTORY: Psychiatrist Dr Ahmadi. Patient currently resides in a host home. Medications are controlled by the host home staff. VITAL SIGNS: Reviewed by me GENERAL: Slightly overweight, resting comfortably in no respiratory distress. HEENT: Atraumatic. Eyes: No icterus, no injection. JAZZY, pupils 6 mm and reactive. Mouth: dry mucous membranes. No erythema or lesions. Neck: supple with no adenopathy. LUNGS: Clear to auscultation bilaterally, no wheezes, rhonchi or rales. CARDIAC: Mild tachycardia. No rubs, murmurs or gallops. ABDOMEN: Soft, nontender, nondistended, bowel sounds normal. BACK: No CVA tenderness. EXTREMITIES: No trauma. No edema. Range of motion is normal throughout. NEURO: Alert and oriented, grossly nonfocal. SKIN: Warm and dry, no rash. No diaphoresis. PSYCHIATRIC: Normal mentation, no agitation. Portions of this note were transcribed by a medical technical writer. I personally performed a history, physical exam, medical decision making, and confirmed accuracy of information the transcribed note. ED Course: 27 y/o male presents following episodes of chest pain and shortness of breath secondary to caffeine consumption. Plan for EKG, CXR, labs including CBC, chemistries, Troponin, lipase. Plan to administer 1L IV NS. 12-LEAD EKG: Please see the full report in [facility]. My interpretation: Sinus rhythm Laboratory studies unremarkable. Troponin negative. 9:55 Reviewed CXR. No acute abnormalities. Plan to discharge patient home in good condition. Encouraged patient to discontinue caffeine use. Follow up and return precautions discussed. He is comfortable with this plan. MDM: Differential diagnoses for the patient's symptom complex was considered including but not limited to polysubstance abuse, alcohol withdrawal, amphetamine use, stimulant use, cardiac strain, cardiac ischemia, electrolyte abnormality. - Data Points Imaging Results: CXR: Impression: Persistent hypoventilatory features and diskoid subsegmental atelectasis at the left lung base, unchanged from 08/18/2017. Dictated By: Javon Callejas MD Imaging: I viewed and interpreted images myself Laboratory Results: Laboratory Results 09/14/17 09:00 09/14/17 09:00 Medications Given: Discontinued Medications Sodium Chloride (Ns) 1,000 mls @ 0 mls/hr IV ONCE ONE; Wide Open PRN Reason: Protocol Stop: 09/14/17 08:39 Last Admin: 09/14/17 09:04 Dose: 1,000 mls Lorazepam (Ativan Injection) 1 mg IVP EDNOW ONE Stop: 09/14/17 08:39 Last Admin: 09/14/17 08:54 Dose: Not Given General Time Seen by Provider: 09/14/17 08:26 Initial Vital Signs: Initial Vital Signs Temperature (C) 36.7 C 09/14/17 08:17 Heart Rate 108 H 09/14/17 08:17 Respiratory Rate 20 09/14/17 08:17 Blood Pressure 148/102 H 09/14/17 08:17 O2 Sat (%) 100 09/14/17 08:17 O2 Delivery Mode Room Air Allergies/Adverse Reactions: No Known Allergies Allergy (Verified 09/14/17 08:13) Home Medications: Medication Instructions Recorded Dextroamphetamine/Amphetamine 30 mg PO DAILY 07/23/17 [Adderall 30 mg Tablet] Dextroamphetamine/Amphetamine 20 mg PO HS 07/23/17 [Dextroamp-Amphetamin 20 mg Tab] Multivitamins [Multivitamin (*)] 1 each PO DAILY 07/23/17 [place]-3/Dha/Epa/Fish Oil [[place]-3 1 each PO BID 07/23/17 Fish Oil Softgel] Adderall 10 mg Tablet 08/18/17 ALPRAZolam [Xanax 0.5 MG (*)] 0.5 mg PO TID PRN #6 tab 09/13/17 Effexor Xr 09/13/17 Klonopin 09/13/17 [place] 09/13/17 Departure - Departure Disposition: Home, Routine, Self-Care Clinical Impression: Anxiety, Caffeine abuse Condition: Good Instructions: Anxiety (ED), Caffeine Use (ED) Additional Instructions: 1. Please discontinue caffeine use. 2. Stay well hydrated. 3. Follow up with your primary care provider. 4. Return to the emergency department for fever, chest pain, shortness of breath , or other worsening of condition. Referrals: Juan David Mcdaniel, [Doctor of Osteopathy] - As per Instructions Report Scribed for: Alison Ellsworth Report Scribed by: Lillian Mcfadden Date of Report: 09/14/17 Time of Report: 09:45
[2017-09-14 10:27] VITALS: BP 153/93
== END 2017-09-14 10:27 | disposition home or self-care (01) ==
DX: F15.10 Other stimulant abuse, uncomplicated (principal); F41.9 Anxiety disorder, unspecified; E86.9 Volume depletion, unspecified

== ENCOUNTER 2017-11-09 13:55 | Emergency (ER) | payer MEDICAID ==
--- NOTE | 2017-11-09 14:18 | EDPHY ---
HPI/HX/ROS/PE/MDM Narrative: CHIEF COMPLAINT: Confusion, insomnia HPI: The patient is a 27 y/o male with anxiety and depression arriving voluntarily with his father for evaluation of confusion onset this morning. History is primarily provided by the patient's father at bedside. He is on multiple medications for anxiety and depression and most nights lives in a host home in [facility] that administers these medications for him. Last night he stayed with his parents and by this morning seemed very confused to his father. Per father, he was "out of it" "almost like he's on something, but he's on probation so I don't think that's possible." He says, "he either didn't take his meds or took too many," but doesn't think that's possible since medications are administered daily at the host home. The patient is also not sleeping and his father describes repeatedly walking in and out of the house every few minutes throughout the day. He has a history of prior panic attacks that his father says happen when he mixes large quantities of alcohol and caffeine. His father took him to [facility] today, but he was not formally evaluated and was referred to the ED due to suspected drug use. The patient denies drug use and pain anywhere. He reports feeling confused and can't tell me the last time he slept, but is A&Ox4. REVIEW OF SYSTEMS: Aside from elements discussed in the HPI, a comprehensive 10-point review of systems was reviewed and is negative. PMH: Anxiety, depression, panic attacks. Admission to [facility] for 10 months last year. SOCIAL HISTORY: Father at bedside. Lives in host home in [facility]. Not employed. PHYSICAL EXAM: General:Patient is alert, in no acute distress. ENT:Eyes are normal to inspection. ENT inspection normal. Neck: Normal inspection. Full range of motion. Respiratory:No respiratory distress. Breath sounds normal bilaterally. Cardiovascular: Regular rate and rhythm. Strong peripheral pulses. Normal cap refill. Abdomen:The abdomen is nontender to palpation. There are no peritoneal signs. Back: Normal to inspection. No tenderness to palpation. Skin: Normal color. No rash. Warm and dry. Extremities: Normal appearance. Full range of motion. Neuro: Oriented x3. Normal motor function. Normal sensory function. No pronator drift. Face symmetric. Normal [id number]. (Dameon Layton) ED Course: This is a 27 y/o male with a history of anxiety and depression with prior long- term hospitalizations for this who presents voluntarily with his father for evaluation of confusion and insomnia. He is A&Ox4, but minimally contributes to history. He cannot tell me the last time he slept and I suspect his insomnia is contributing to current symptoms. He has a normal neuro exam. Plan for standard psychiatric labs and mental health evaluation. 1500: Patient care signed out to Dr. Bryant at shift change. (Dameon Layton ) MDM: Patient's care transferred to me at 3:00 p.m. 6:30 p.m. the patient attempted to walk out. He is here voluntarily. Because of reports of confusion I am concerned that he does not have capacity at this point. I asked security to bring him back and will place him on a detainer. He has been partially evaluated. 8:15 p.m. the patient has been evaluated. They feel that he is at the beginning of a manic episode. Dad feels confident that he can handle the patient at home if he can just get some sleep. Patient is prescribe sonata as well as Klonopin and Xanax but they do not think he has been taking them. Psychiatrist requests that we prescribe him Seroquel for a sleep aid for tonight and they will re-evaluate him tomorrow. (Fabricio Bryant) - Data Points Laboratory Results: Laboratory Results 11/09/17 14:50 11/09/17 14:50 11/09/17 11/09/17 11/09/17 15:20 14:50 14:50 WBC 8.68 10^3/uL 10^3/uL (3.80-9.50) RBC 5.06 10^6/uL 10^6/uL (4.40-6.38) Hgb 15.2 g/dL g/dL (13.7-17.5) Hct 44.8 % % (40.0-51.0) MCV 88.5 fL fL (81.5-99.8) MCH 30.0 pg pg (27.9-34.1) MCHC 33.9 g/dL g/dL (32.4-36.7) RDW 11.9 % % (11.5-15.2) Plt Count 332 10^3/uL 10^3/uL (150-400) MPV 9.6 fL fL (8.7-11.7) Neut % (Auto) 63.8 % % (39.3-74.2) Lymph % (Auto) 24.8 % % (15.0-45.0) [place] % (Auto) 10.6 % % (4.5-13.0) Eos % (Auto) 0.3 % L % (0.6-7.6) Baso % (Auto) 0.3 % % (0.3-1.7) Nucleat RBC Rel Count 0.0 % % (0.0-0.2) Absolute Neuts (auto) 5.53 10^3/uL 10^3/uL (1.70-6.50) Absolute Lymphs (auto) 2.15 10^3/uL 10^3/uL (1.00-3.00) Absolute Monos (auto) 0.92 10^3/uL H 10^3/uL (0.30-0.80) Absolute Eos (auto) 0.03 10^3/uL 10^3/uL (0.03-0.40) Absolute Basos (auto) 0.03 10^3/uL 10^3/uL (0.02-0.10) Absolute Nucleated RBC 0.00 10^3/uL 10^3/uL (0-0.01) Immature Gran % 0.2 % % (0.0-1.1) Immature Gran # 0.02 10^3/uL 10^3/uL (0.00-0.10) Sodium 142 mEq/L mEq/L (135-145) Potassium 4.2 mEq/L mEq/L (3.3-5.0) Chloride 106 mEq/L mEq/L (97-110) Carbon Dioxide 23 mEq/l mEq/l (22-31) Anion Gap 13 mEq/L mEq/L (8-16) BUN 12 mg/dL mg/dL (7-23) Creatinine 0.8 mg/dL mg/dL (0.7-1.3) Estimated GFR > 60 Glucose 84 mg/dL mg/dL (70-100) Calcium 9.1 mg/dL mg/dL (8.5-10.4) Urine Opiates Screen NEGATIVE (NEGATIVE) Urine Barbiturates NEGATIVE (NEGATIVE) Ur Phencyclidine Scrn NEGATIVE (NEGATIVE) Ur Amphetamine Screen NEGATIVE (NEGATIVE) U Benzodiazepines Scrn NEGATIVE (NEGATIVE) Urine Cocaine Screen NEGATIVE (NEGATIVE) U Marijuana (THC) Screen NEGATIVE (NEGATIVE) Ethyl Alcohol < 10 mg/dL mg/dL (0-10) Medications Given: Discontinued Medications Quetiapine Fumarate (Seroquel) 100 mg PO ONCE ONE Stop: 11/09/17 20:19 Last Admin: 11/09/17 20:49 Dose: 100 mg General Time Seen by Provider: 11/09/17 14:10 Initial Vital Signs: Initial Vital Signs Temperature (C) 36.7 C 11/09/17 14:04 Heart Rate 98 11/09/17 14:04 Respiratory Rate 16 11/09/17 14:04 Blood Pressure 135/83 H 11/09/17 14:04 O2 Sat (%) 96 11/09/17 14:04 O2 Delivery Mode Room Air Allergies/Adverse Reactions: No Known Allergies Allergy (Verified 11/09/17 14:04) Home Medications: Medication Instructions Recorded Dextroamphetamine/Amphetamine 30 mg PO DAILY 07/23/17 [Adderall 30 mg Tablet] Dextroamphetamine/Amphetamine 20 mg PO HS 07/23/17 [Dextroamp-Amphetamin 20 mg Tab] Multivitamins [Multivitamin (*)] 1 each PO DAILY 07/23/17 [place]-3/Dha/Epa/Fish Oil [[place]-3 1 each PO BID 07/23/17 Fish Oil Softgel] Adderall 10 mg Tablet 08/18/17 ALPRAZolam [Xanax 0.5 MG (*)] 0.5 mg PO TID PRN #6 tab 09/13/17 Effexor Xr 09/13/17 Klonopin 09/13/17 Sonata 09/13/17 Departure - Departure Disposition: Home, Routine, Self-Care Clinical Impression: Bipolar 1 disorder Insomnia Qualifiers: Insomnia type: unspecified Qualified Code(s): G47.00 - Insomnia, unspecified Condition: Fair Instructions: Bipolar Disorder (ED), Insomnia (ED) Referrals: NONE *PRIMARY CARE P,. [Primary Care Provider] - As per Instructions Report Scribed for: Dameon Layton Report Scribed by: Brigette Dacosta Date of Report: 11/09/17 Time of Report: 14:18 Physician Review and Approval Statement: Portions of this note were transcribed by an ED scribe. I personally performed the history, physical exam, and medical decision making; and confirm the accuracy of the information in the transcribed note.
[2017-11-09 15:01] LABS: PLATELET COUNT 332 10^3/uL (150-400)
[2017-11-09 15:46] VITALS: BP 164/85
[2017-11-09] MEDS ORDERED: QUEtiapine FUMARATE 100 MG TAB PO ONE (20:18)
== END 2017-11-09 20:50 | disposition home or self-care (01) ==
DX: F31.9 Bipolar disorder, unspecified (principal); G47.00 Insomnia, unspecified
CPT/HCPCS: 80305; G0480

== ENCOUNTER 2017-12-29 13:30 | Inpatient (IN) | payer OTHER, MEDICAID ==
--- NOTE | 2017-12-29 15:58 | ASMTLCPROG ---
Notes Note: Notes: Pt's admission coordinated with and [facility] for inpt BH and ECT admission under the care of Dr. Pinto. Date Signed: 12/29/2017 03:58 PM Electronically Signed By:Shala Montilla
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
[2017-12-29] MEDS ORDERED: MAG HYDROX/AL HYDROX/SIMETH 30 ML UDCUP PO PRN (19:51)
[2017-12-29] MEDS ORDERED: OLANZapine DISINTEGR 10 MG TAB PO PRN (19:51)
[2017-12-29] MEDS ORDERED: LORazepam 0.5 MG TAB PO PRN (19:51)
[2017-12-29] MEDS ORDERED: MAGNESIUM HYDROXIDE 30 ML UDCUP PO PRN (19:51)
[2017-12-29] MEDS: QUEtiapine FUMARATE 300 MG TAB PO SCH (20:52)
[2017-12-29] MEDS: MELATONIN 3 MG TAB PO SCH (20:53)
--- NOTE | 2017-12-30 08:56 | ASMTBHMTP ---
Master Treatment Plan Master Treatment Plan Answers: Depressed Mood with for: Suicidal Ideation Date: 12/29/2017 Diagnosis on Admission: Schizoaffective Disorder, Depressive Type (295.70 (F25.1) Expected length of stay: 3-5 days Reason for admission: Notes: Pt is a 27 year old single, male who was admitted to the [facility] 3N unit [facility] pt [facility] for ECT treatment. Pt was originally admitted to [facility] due to increasing depression and suicidal thoughts. Pt has had a hx of both manic and depressive episodes and currently presenting with chronic SI. Pt had expressed feeling safe in a controlled setting but does not feel he could keep himself safe outside of the hospital. Pt also reported severe anxiety and paranoia about people reading his thoughts. Pt had stated he was having continued thoughts of suicide and unspecified thoughts of harming others though states he will not act on these thoughts. Per medical reports pt has a hx of agitation, behavioral problems, confusion, decreased concentration, dysphoric mood, sleep disturbance and suicidal ideations. Pt was determined to be nervous/ anxious and hyperactive. Recent evaluation on 12/20 pt determined to be dressed appropriately, calm, withdrawn, somnolent, flat affect, with poor insight and judgment. Patient's stated presenting problems: Notes: "Client would not answer." Patient's goals for treatment: Notes: "Client would not answer." Patient's strengths: Notes: "Client would not answer." Identify supports outside of hospital: Notes: "Client would not answer." Discharge criteria: Notes: Suicidal Ideation will resolve and patient will have a plan to safely manage recurrent suicidal ideation Initial disposition plan/considerations: Notes: "Client would not answer." Master Treatment Plan Required Signatures Psychiatrist signature: Answers: Psychiatrist: RN on-shift signature: Answers: RN: Patient signature: Answers: Patient: Date Signed: 12/30/2017 08:55 AM Electronically Signed By:Nathanael Ding
--- NOTE | 2017-12-30 09:11 | GCON ---
[f rep st] CONSULTATION DATE OF CONSULTATION: 12/30/2017 REFERRING PHYSICIAN: Leann Webb MD REASON FOR CONSULTATION: Medical management. HISTORY OF PRESENT ILLNESS: A 27-year-old male with a history of depression, polysubstance abuse, wh o was admitted to [address] as a transfer patient from inpatient behavior unit at [facility] for ECT treatment. He was originally admitted to [facility] due to increasing depression and suicida l thoughts. He has a history of both manic and depressive episodes, currently presenting with chroni c suicidal ideations. He feels safe when he is in a controlled environment, but does not think he co uld keep himself out of harm if outside the hospital. He has had increased anxiety and paranoia that people reading his thoughts. Has had suicidal ideations, but would not expand on a plan. He was at [facility] 11/05 to 12/23. During my interview, says that he has been in a fog. Denies any fevers, chills, or sweats. No nause a, vomiting, or diarrhea. REVIEW OF SYSTEMS: I completed a 10-point review of systems, negative, except as noted in HPI. PAST MEDICAL HISTORY: Depression, history of polysubstance abuse, history of manic episodes, history of suicidal ideation. PAST SURGICAL HISTORY: Denies. SOCIAL HISTORY: Smokes tobacco. Lives with his parents. Denies alcohol or illicits. FAMILY HISTORY: Noncontributory. LABORATORY DATA: None. PHYSICAL EXAMINATION: VITAL SIGNS: Temperature 37.1, blood pressure 125/77. Heart rate is in the 8 0s to 100s, respiration rate 14, 95%. GENERAL: He is lying in his bed, covered, in no acute distres s. He is answering questions appropriately. HEENT: PERRLA. Moist mucous membranes. CV: Would no t participate in full exam. LUNGS: Would not cooperate. GI: Would not cooperate. : No [place]. MUSCULOSKELETAL: He is moving all extremities. NEUROLOGIC: 2 through 12 intact. PSYCH: He is al ert and oriented, answering questions. Flat affect. ASSESSMENT AND PLAN: 1. Chronic suicidal ideations: Transferred from [facility] for ECT treatment per behavior health team. Seroquel, Zyprexa, and Ativan as needed. 2. Tobacco abuse: Declined nicotine patch. 3. Deep vein thrombosis prophylaxis: Ambulatory. Thank you for this consult. We will follow along if any questions. /[id number]/MODL
[2017-12-30] MEDS: MELATONIN 3 MG TAB PO SCH (19:30)
[2017-12-30] MEDS: QUEtiapine FUMARATE 300 MG TAB PO SCH (19:48)
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
--- NOTE | 2017-12-31 14:54 | ASMTCMCOM ---
CM Note CM Note Notes: Pt. was lying in bed when CC approached. Pt. reports feeling "okay". Pt. stated he slept "good". Pt. reports eating well and not attending groups because he is "not interested". Pt.. reports no issues with his current medications. PT. denied SI, HI, AVH and paranoia. Pt. stated he already has outpatient providers. Pt. presents as passive, guarded, quiet, mumbling at times, a bit anxious and staring at CC. Staff report pt. sleeping at least 9 hours and isolating in his room. Pt. prefers to be called "Ryan". Date Signed: 12/31/2017 02:53 PM Electronically Signed By:Monse Pantoja
--- NOTE | 2017-12-31 16:58 | SOAPPROG ---
SOAP Progress Note Assessment/Plan: Assessment: 27yo CM with Schizoaffective d/o and Borderline Intellectual functioning (IQ 70 ) and admitted as [facility] [place] [facility] [place]. 12/31/17 17:52 per staff, slept over 9hr. has been isolative, guarded. out for meals, otherwise resting or sleeping in room. has been denying SI or thoughts to harm others. compliant with meds, seroquel 300mg hs and melatonin 3mg hs. no prns required today. Upon interview later this afternoon, pt was in his room resting in bed. disheveled. stated he has been sleeping most of the day, altho has been up for meals. MSE: in bed, recently awake. decr eye contact, but speech nml rate/vol, more spontaneous than on initial interview yesterday. Restricted affect, and mood is : "not doing well" this evening b/c of negative thoughts, suicidal thoughts. declined to share details. Stated, "I hope so" regarding if he could be safe on unit. denied AH or VH, just ruminative neg thoughts. denied thoughts to harm others. i/j impaired. cognition seemed intact. PLAN: discussed med options- patient was readily willing to have seroquel 50mg added as prn for anxiety/disturbing thoughts, also to incr HS dose. feels this would help, and came to RN window shortly after to request medication. With this med change, patient did state he felt he could be safe on unit and t/w staff if felt otherwise. Start Quetiapine 50mg TID PRN Incr Quetiapine to 350mg qhs check VS this pm, none noted yesterday or this am cont on SP,AP, safety precautions. Plan ECT consult in AM Objective: Vital Signs Temp Pulse Resp BP Pulse Ox 37.1 C 104 H 14 125/77 H 95 12/29/17 18:09 12/29/17 18:09 12/29/17 18:09 12/29/17 18:09 12/29/17 18:09 - Time Spent With Patient Time Spent With Patient: 10min - Pending Discharge Pending Discharge Within 24 Hours: No Pending Discharge Within 48 Hours: No ICD10 Worksheet Patient Problems: Problems Problem Status Onset Alcohol intoxication Acute Anxiety Acute Tachycardia Acute
[2017-12-31] MEDS ORDERED: QUEtiapine FUMARATE 50 MG TAB PO PRN (19:16)
[2017-12-31] MEDS: QUEtiapine FUMARATE 300 MG TAB PO SCH (19:43)
[2017-12-31] MEDS: QUEtiapine FUMARATE 50 MG TAB PO SCH (19:44)
[2017-12-31] MEDS: MELATONIN 3 MG TAB PO SCH (19:44)
[2018-01-01] MEDS: QUEtiapine FUMARATE 50 MG TAB PO PRN (15:56)
--- NOTE | 2018-01-01 17:04 | SOAPPROG ---
SOFELIPE Progress Note Assessment/Plan: Assessment: Plan: 01/01/18 17:04 Schizoaffective D/o: Pt states he is motivated to do ECT, though is resistant to necessary pre-treatment tests. Will continue to foster therapeutic alliance. Will proceed with ECT if he demonstrates willingness to comply. Continue meds as currently written except change PRN SQL to q4 from TID. Subjective: Pt seen, discussed with staff, history and chart reviewed. He refused EKG this morning, insisting he did one at . reports pt refused. He agrees to repeat here, but not in time to treat today. Has been isolative, primarily sleeping in his room. Offers no c/o's. States he is motivated to do ECT as it helped him before. Disheveled, lying in bed. Engages well, maintains eye contact. Affect is blunted, stable, approp. Mood is "not too good." TP is generally linear, though abbreviated. TC reveals likely paranoia, some poverty. Objective: Vital Signs Temp Pulse Resp BP Pulse Ox 37.1 C 93 14 108/60 95 12/29/17 18:09 12/31/17 18:00 12/31/17 18:00 12/31/17 18:00 12/31/17 18:00 - Time Spent With Patient Time Spent With Patient: 25" ICD10 Worksheet Patient Problems: Problems Problem Status Onset Alcohol intoxication Acute Anxiety Acute Tachycardia Acute
[2018-01-01] MEDS: QUEtiapine FUMARATE 50 MG TAB PO SCH (20:10)
[2018-01-01] MEDS: MELATONIN 3 MG TAB PO SCH (20:10)
[2018-01-01] MEDS: QUEtiapine FUMARATE 300 MG TAB PO SCH (20:10)
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
[2018-01-02] MEDS: QUEtiapine FUMARATE 50 MG TAB PO PRN (17:03)
[2018-01-02] MEDS: QUEtiapine FUMARATE 50 MG TAB PO SCH (18:56)
[2018-01-02] MEDS: QUEtiapine FUMARATE 300 MG TAB PO SCH (18:56)
[2018-01-02] MEDS: MELATONIN 3 MG TAB PO SCH (18:58)
[2018-01-03] MEDS ORDERED: ONDANSETRON DISINTEGRATING 4 MG TAB PO PRN (04:00)
[2018-01-03] MEDS ORDERED: NS 1,000 ML IV PRN (04:00)
[2018-01-03] MEDS ORDERED: CITRIC ACID/SODIUM CITRATE 30 ML UDCUP PO PRN (04:00)
--- NOTE | 2018-01-03 13:04 | CPEKG ---
Test Reason : OPEN Blood Pressure : / mmHG Vent. Rate : 069 BPM Atrial Rate : 070 BPM P-R Int : 132 ms QRS Dur : 088 ms QT Int : 388 ms P-R-T Axes : 050 099 001 degrees QTc Int : 416 ms SINUS RHYTHM Non specific ST/T wave changes are new in comparison to prior ECG Confirmed by Akira Olson ([id number]) on 01/03/2018 1:04:17 PM Referred By: Confirmed By:Akira Olson
[2018-01-03] MEDS ORDERED: fentaNYL 100 MCG/2 ML INJ ONE (13:48)
[2018-01-03] MEDS ORDERED: ETOMIDATE 20 MG/10 ML VIAL ONE (13:48)
[2018-01-03] MEDS ORDERED: MIDAZOLAM 2 MG/2 ML VIAL ONE (13:48)
[2018-01-03] MEDS ORDERED: GLYCOPYRROLATE 0.2 MG/1 ML VIAL ONE (13:48)
[2018-01-03] MEDS ORDERED: ONDANSETRON 4 MG/2 ML VIAL ONE (13:48)
[2018-01-03] MEDS ORDERED: ROCURONIUM 50 MG/5 ML VIAL ONE (13:52)
[2018-01-03] MEDS: NICOTINE POLACRILEX 2 MG GUM B PRN ×2 (14:16→17:35)
[2018-01-03] MEDS ORDERED: SUCCINYLCHOLINE CHLORIDE 200 MG/10 ML VIAL ONE (14:18)
[2018-01-03] MEDS ORDERED: CITRIC ACID/SODIUM CITRATE 30 ML UDCUP ONE (14:55)
[2018-01-03] MEDS ORDERED: ONDANSETRON DISINTEGRATING 4 MG TAB ONE (14:55)
--- NOTE | 2018-01-03 15:28 | PDECTPN ---
ECT Progress Note Patient Problems: Problems Problem Status Onset Code Alcohol intoxication Acute F10.929 Anxiety Acute F41.9 Tachycardia Acute R00.0 Date: 01/03/18 ECT provider: Daniel Pinto Anesthesia: Heraclio Pearson Stimulus dose (%): 35 Pulse width: 0.3 ECT EMG (sec): 50 ECT EEG (sec): 106 ECT treatment type: unilateral QIDS-SR Total Score: 16 QIDS-SR Question #12 Score: 3 MMSE Total Score (Max = 21): 21 Next ECT date: 01/05/18 Next ECT time: 06:45 O/P psychiatrist follow up: direct communication Home medications: Medication Instructions Recorded Melatonin [Melatonin 3 MG (*)] 3 mg PO HS 01/02/18 QUEtiapine FUMARATE [Seroquel 300 mg PO HS 01/02/18 300mg (*)] Medication review: completed Current treatment plan: acute phase Treatment plan frequency: 3 times per week ECT narrative: Pt is seen for initial acute course treatment. He is agreeable to ECT and is able to discuss the plan of care with myself and then with treatment team. Continues to isolate in his room, states he doesn't like to interact with others. No aggression or behavioral problems noted. Mood remains "really bad. " He states, "I hope ECT will help me feel better." Affect is dysphoric, blunted, stable. Mood is "bad." TP linear. TC reveals possible paranoia. Underwent RUL ECT without complication. Will continue acute course treatment.
--- NOTE | 2018-01-03 15:32 | PDHPUP ---
History & Physical Update H&P update statement: This history and physical update is based on an assessment of the patient which was completed after admission or registration (within 24 hours), but prior to the surgery/procedure. H&P update: H&P reviewed & patient examined, no change in patient's condition since H&P completed
--- NOTE | 2018-01-03 15:32 | PDANEPAE ---
ECT Pre Anesthetic Evaluation Allergies/Adverse Reactions: No Known Allergies Allergy (Verified 11/09/17 14:04) Patient ID confirmed: Yes H&P reviewed: Yes Pre-anesthetic history reviewed: Yes Heart: regular rate and rhythym, no murmur, rub, or gallop Lungs: no respiratory distress, clear to auscultation Mallampati Score: Class 2 ASA Status: III Home Medications: Medication Instructions Recorded Melatonin [Melatonin 3 MG (*)] 3 mg PO HS 01/02/18 QUEtiapine FUMARATE [Seroquel 300 mg PO HS 01/02/18 300mg (*)] Medication review: completed Patient interviewed: Yes Patient examined: Yes Anesthetic plan discussed with patient: Yes Anesthetic risks discussed with patient: Yes ECT Pre-Anesthetic History - Height & Weight Height: 170.18 cm Weight: 90.718 kg BMI: 31.35 - Anesthesia History Hx Anesthesia Complications (with details): No Family Hx Anesthesia Complications: NO - Tobacco/Alcohol/Drug Use Smoking Status: Current every day smoker Total Number Of Years As A Smoker: 5 Hx Drug/Substance Abuse: No Alcohol Use: Yes Alcohol Quantity: 2 drinks per day - Prior Surgeries/Hospitalizations Prior Surgeries: NO Prior Medical Hospitalizations: No - Pulmonary History ECT Hx Asthma: No Hx Abnormal Chest X-Ray: No Hx Oxygen in Use at Home: No - Cardiovascular History Hx Hypertension: No Currently Uses Hypertension Medication: No Hx Arrhythmias: No Hx Palpitations: No Hx Chest Pain: No Hx Coronary Artery / Peripheral Vascular Disease: No Hx Blood Clot: No - Neurologic History Hx Cerebrovascular Accident: No Hx CT Scan Or MRI Of The Brain: No Hx Epilepsy, Convulsions, Seizures, Or Blackouts: No Hx Frequent Or Severe Headaches: No Hx Numbness: No Hx Neurologic Disorder: No - Dental History Current Dental Issues: None - Endocrine History Hx Diabetes: No Current Daily Insulin Injections: No Hx Thyroid Problems: No - Renal/Urologic History Hx Renal Disorders: No Hx Urinary Tract Problems: No - Liver History Hx Hepatic Disorders: No - Cancer History Hx Cancer: No - Hematology History Hx Unexplained Bleeding Of Any Type: No Hx Ease Of Bruising: No Hx Anemia: No - Gastrointestinal History Hx Gastroesophogeal Reflux Disease: No Hx Ulcers: No Hx Hiatal Hernia: No Hx Difficulty Swallowing: No - Musculoskeletal Hisory Hx Chronic Pain: No Hx Arthritis: No - Opthalmic History Hx Glaucoma: No Visual Assistive Devices: Glasses Hx Opthalmic Disorders: No - Other Health History Physical Disabililty: No Recent Cough, Cold, or Fever: No Significant Weight Loss In The Last 4 Months: No Possible the Patient Might be : No
[2018-01-03] MEDS: ACETAMINOPHEN 325 MG TAB PO PRN (18:48)
[2018-01-03] MEDS: MELATONIN 3 MG TAB PO SCH (19:29)
[2018-01-03] MEDS: QUEtiapine FUMARATE 50 MG TAB PO SCH (19:30)
[2018-01-03] MEDS: QUEtiapine FUMARATE 300 MG TAB PO SCH (19:30)
--- NOTE | 2018-01-04 15:00 | ASMTCMCOM ---
CM Note CM Note Notes: CC attempted to meet with pt. several times. Pt. refused to meet with CC. Staff report pt. sleeping 11 hours, isolating in his room, giving one-word answers, and being medication complaint. Pt. is scheduled for ECT on Monday at 0645 Date Signed: 01/04/2018 03:00 PM Electronically Signed By:Monse Pantoja
[2018-01-04] MEDS: QUEtiapine FUMARATE 50 MG TAB PO PRN (16:36)
[2018-01-04] MEDS: NICOTINE POLACRILEX 2 MG GUM B PRN ×2 (16:52→18:07)
--- NOTE | 2018-01-04 17:40 | SOAPPROG ---
SOFELIPE Progress Note Assessment/Plan: Assessment: Plan: 01/01/18 17:04 Schizoaffective D/o: Pt states he is motivated to do ECT, though is resistant to necessary pre-treatment tests. Will continue to foster therapeutic alliance. Will proceed with ECT if he demonstrates willingness to comply. Continue meds as currently written except change PRN SQL to q4 from TID. 01/04/18 17:41 Schizoaffective D/o: No change. Tolerating ECT well. CCM. Subjective: Pt seen, discussed with staff. Reports feeling "pretty bad." Unable to explain this, but states it is more emotional than physical. Continues to spend most of his time in bed, isolating. Offers no c/o's. Tolerated first ECT tx well. Objective: Vital Signs Temp Pulse Resp BP Pulse Ox 36.6 C 103 H 14 105/60 93 01/03/18 19:00 01/03/18 19:00 01/03/18 19:00 01/03/18 19:00 01/03/18 19:00 01/03/18 01/04/18 01/05/18 05:59 05:59 05:59 Intake Total 450 Balance 450 MSE: Calm, coop. Affect is blunted, dysphoric, stable. Mood is "bad." TP is abbreviated, though generally linear. TC reveals no psychosis. - Time Spent With Patient Time Spent With Patient: 15" ICD10 Worksheet Patient Problems: Problems Problem Status Onset Alcohol intoxication Acute Anxiety Acute Tachycardia Acute
[2018-01-04] MEDS: QUEtiapine FUMARATE 300 MG TAB PO SCH (19:13)
[2018-01-04] MEDS: QUEtiapine FUMARATE 50 MG TAB PO SCH (19:13)
[2018-01-04] MEDS: MELATONIN 3 MG TAB PO SCH (19:16)
[2018-01-05] MEDS ORDERED: ONDANSETRON DISINTEGRATING 4 MG TAB PO PRN (04:00)
[2018-01-05] MEDS ORDERED: NS 1,000 ML IV PRN (04:00)
[2018-01-05] MEDS ORDERED: CITRIC ACID/SODIUM CITRATE 30 ML UDCUP PO PRN (04:00)
[2018-01-05] MEDS ORDERED: fentaNYL 100 MCG/2 ML INJ ONE (04:28)
[2018-01-05] MEDS ORDERED: MIDAZOLAM 2 MG/2 ML VIAL ONE (04:28)
[2018-01-05] MEDS ORDERED: ONDANSETRON 4 MG/2 ML VIAL ONE (04:29)
[2018-01-05] MEDS ORDERED: ROCURONIUM 50 MG/5 ML VIAL ONE (04:29)
[2018-01-05] MEDS ORDERED: GLYCOPYRROLATE 0.2 MG/1 ML VIAL ONE (04:29)
[2018-01-05] MEDS ORDERED: SUCCINYLCHOLINE CHLORIDE 200 MG/10 ML VIAL ONE (04:29)
[2018-01-05] MEDS ORDERED: ETOMIDATE 20 MG/10 ML VIAL ONE (04:29)
[2018-01-05] MEDS ORDERED: CITRIC ACID/SODIUM CITRATE 30 ML UDCUP ONE (06:39)
[2018-01-05] MEDS ORDERED: ONDANSETRON DISINTEGRATING 4 MG TAB ONE (06:39)
[2018-01-05] MEDS ORDERED: KETOROLAC 30 MG/1 ML SDV ONE (07:10)
--- NOTE | 2018-01-05 07:13 | PDECTPN ---
ECT Progress Note Patient Problems: Problems Problem Status Onset Code Alcohol intoxication Acute F10.929 Anxiety Acute F41.9 Tachycardia Acute R00.0 Date: 01/05/18 ECT provider: Daniel Pinto Anesthesia: Heraclio Pearson Stimulus dose (%): 40 Pulse width: 0.3 ECT EMG (sec): 48 ECT EEG (sec): 48 ECT treatment type: unilateral QIDS-SR Total Score: 26 QIDS-SR Question #12 Score: 1 MMSE Total Score (Max = 21): 19 Next ECT date: 01/08/18 Next ECT time: 08:00 O/P psychiatrist follow up: direct communication Home medications: Medication Instructions Recorded Melatonin [Melatonin 3 MG (*)] 3 mg PO HS 01/02/18 QUEtiapine FUMARATE [Seroquel 300 mg PO HS 01/02/18 300mg (*)] Medication review: completed Current treatment plan: acute phase Treatment plan frequency: 3 times per week ECT narrative: Pt is seen for continued acute course treatment. He reports feeling "better." Mood is subjectively improved. He is more engaging today, actually reaches out to shake my hand. Affect remains blunted, stable. Mood is "better." TP linear. TC reveals possible paranoia. Underwent RUL ECT without complication. Will continue acute course treatment.
--- NOTE | 2018-01-05 09:22 | POSTANESTH ---
Post Anesthetic Evaluation Cardiovascular Status: Normal, Stable Respiratory Status: Normal, Stable Level of Consciousness/Mental Status: Can Participate in Eval, Alert and Oriented Pain Control: Adequate, Prn Tx Ordered Nausea/Vomiting Control: Adequate, Prn Tx Ordered Complications Possibly Related to Anesthesia: None Noted
--- NOTE | 2018-01-05 13:51 | ASMTCMCOM ---
CM Note CM Note Notes: The patient denied anxiety, depression, and SI/HI/A/VH. He was reserved and soft spoken. He reported that he planned to return home to his parent's house upon discharge and that his parent's were aware of this plan. The patient avoided eye contact and was constricted in his verbal response. Date Signed: 01/05/2018 01:49 PM Electronically Signed By:Winter Daniels
[2018-01-05] MEDS: NICOTINE POLACRILEX 2 MG GUM B PRN ×2 (18:22→18:57)
[2018-01-05] MEDS: ACETAMINOPHEN 325 MG TAB PO PRN (18:22)
[2018-01-05] MEDS: MELATONIN 3 MG TAB PO SCH (19:38)
[2018-01-05] MEDS: QUEtiapine FUMARATE 50 MG TAB PO SCH (19:39)
[2018-01-05] MEDS: QUEtiapine FUMARATE 300 MG TAB PO SCH (19:39)
[2018-01-06] MEDS: NICOTINE POLACRILEX 2 MG GUM B PRN ×5 (10:14→15:24)
--- NOTE | 2018-01-06 17:23 | SOAPPROG ---
SOAP Progress Note Assessment/Plan: Assessment: Per Dr. Pinto's note: Plan: 01/01/18 17:04 Schizoaffective D/o: Pt states he is motivated to do ECT, though is resistant to necessary pre-treatment tests. Will continue to foster therapeutic alliance. Will proceed with ECT if he demonstrates willingness to comply. Continue meds as currently written except change PRN SQL to q4 from TID. 01/04/18 17:41 Schizoaffective D/o: No change. Tolerating ECT well. CCM. Subjective: Pt seen, discussed with staff. Reports feeling "pretty bad." Unable to explain this, but states it is more emotional than physical. Continues to spend most of his time in bed, isolating. Offers no c/o's. Tolerated first ECT tx well. Plan: 01/06/18 17:19 1. Patient more present in milieu today and spending more time OOR. 2. Denied SI 3. Not attending groups. 4. Ate 75% of meals and drank adequate amount of fluids 5. Next ECT on Monday Subjective: Met with patient and d/w staff. Patient said he remembered meeting MD at another hospital "several years" ago. MD does not remember patient, but said it was possible he treated patient at the [facility]. Patient has been present in milieu more today, but still does not attend groups. He denied any SI/HI. Objective: Vital Signs Temp Pulse Resp BP Pulse Ox 36.8 C 110 H 14 96/53 L 95 01/05/18 10:20 01/05/18 10:20 01/05/18 10:20 01/05/18 10:20 01/05/18 10:20 01/05/18 01/06/18 01/07/18 05:59 05:59 05:59 Intake Total 550 Balance 550 MSE: Affect: Flat Mood: "OK" TP: Tangential TC: No paranoia Perception: Denies any AH/VH Insight/Judgment: Improving - Time Spent With Patient Time Spent With Patient: 15" - Pending Discharge Pending Discharge Within 24 Hours: No Pending Discharge Within 48 Hours: No ICD10 Worksheet Patient Problems: Problems Problem Status Onset Alcohol intoxication Acute Anxiety Acute Tachycardia Acute
[2018-01-06] MEDS: QUEtiapine FUMARATE 50 MG TAB PO SCH (19:52)
[2018-01-06] MEDS: QUEtiapine FUMARATE 300 MG TAB PO SCH (19:53)
[2018-01-06] MEDS: MELATONIN 3 MG TAB PO SCH (19:53)
[2018-01-06] MEDS: NICOTINE 21 MG/24 HR PATCH TD SCH (19:55)
[2018-01-07] MEDS: NICOTINE 21 MG/24 HR PATCH TD SCH (09:35)
[2018-01-07] MEDS: NICOTINE POLACRILEX 2 MG GUM B PRN ×6 (11:20→19:39)
--- NOTE | 2018-01-07 15:38 | SOAPPROG ---
SOAP Progress Note Assessment/Plan: Assessment: Per Dr. Pinto's note: Plan: 01/01/18 17:04 Schizoaffective D/o: Pt states he is motivated to do ECT, though is resistant to necessary pre-treatment tests. Will continue to foster therapeutic alliance. Will proceed with ECT if he demonstrates willingness to comply. Continue meds as currently written except change PRN SQL to q4 from TID. 01/04/18 17:41 Schizoaffective D/o: No change. Tolerating ECT well. CCM. Subjective: Pt seen, discussed with staff. Reports feeling "pretty bad." Unable to explain this, but states it is more emotional than physical. Continues to spend most of his time in bed, isolating. Offers no c/o's. Tolerated first ECT tx well. Plan: 01/06/18 17:19 1. Patient more present in milieu today and spending more time OOR. 2. Denied SI 3. Not attending groups. 4. Ate 75% of meals and drank adequate amount of fluids 5. Next ECT on Monday01/07/18 15:35 1. Patient pleasant and calm this AM. 2. Ate 100% of breakfast. 3. Attended some groups. 4. Denies any SI/HI. 5. ECT tomorrow Subjective: Met with patient and d/w staff. Patient is pacing halls and says he feels "good " today. He is anxious to leave hospital and wants to return home, however, [facility] told CC that she doesn't think patient is "ready" to return home. Patient has not been aggressive or had any outbursts this weekend. He is sleeping well and eating appropriately. He denies any SI/HI. He is less isolative and attended art therapy group today. Objective: Vital Signs Temp Pulse Resp BP Pulse Ox 36.8 C 110 H 14 96/53 L 95 01/05/18 10:20 01/05/18 10:20 01/05/18 10:20 01/05/18 10:20 01/05/18 10:20 01/06/18 01/07/18 01/08/18 05:59 05:59 05:59 Intake Total 550 Balance 550 MSE: Affect: Euthymic Mood: "Good" TP: Paucity of speech, linear TC: No paranoia, denies any SI/HI Insight/Judgment: Improving - Time Spent With Patient Time Spent With Patient: 15" - Pending Discharge Pending Discharge Within 24 Hours: No Pending Discharge Within 48 Hours: No ICD10 Worksheet Patient Problems: Problems Problem Status Onset Alcohol intoxication Acute Anxiety Acute Tachycardia Acute
[2018-01-07] MEDS: QUEtiapine FUMARATE 50 MG TAB PO PRN (16:39)
[2018-01-07] MEDS: QUEtiapine FUMARATE 300 MG TAB PO SCH (19:36)
[2018-01-07] MEDS: MELATONIN 3 MG TAB PO SCH (19:36)
[2018-01-07] MEDS: QUEtiapine FUMARATE 50 MG TAB PO SCH (19:36)
[2018-01-08] MEDS ORDERED: THEOPHYLLINE ORAL SOLUTION 80 MG/15 ML UDCUP ONE (02:42)
[2018-01-08] MEDS ORDERED: NS 1,000 ML IV PRN (05:00)
[2018-01-08] MEDS ORDERED: CITRIC ACID/SODIUM CITRATE 30 ML UDCUP PO PRN (05:00)
[2018-01-08] MEDS ORDERED: ONDANSETRON DISINTEGRATING 4 MG TAB PO PRN (05:00)
[2018-01-08] MEDS ORDERED: ONDANSETRON DISINTEGRATING 4 MG TAB ONE (06:45)
[2018-01-08] MEDS ORDERED: CITRIC ACID/SODIUM CITRATE 30 ML UDCUP ONE (06:45)
[2018-01-08] MEDS ORDERED: fentaNYL 100 MCG/2 ML INJ ONE (06:56)
[2018-01-08] MEDS ORDERED: MIDAZOLAM 2 MG/2 ML VIAL ONE (06:56)
[2018-01-08] MEDS ORDERED: ONDANSETRON 4 MG/2 ML VIAL ONE (06:57)
[2018-01-08] MEDS ORDERED: ETOMIDATE 20 MG/10 ML VIAL ONE (06:57)
[2018-01-08] MEDS ORDERED: SUCCINYLCHOLINE CHLORIDE 200 MG/10 ML VIAL ONE (06:58)
[2018-01-08] MEDS ORDERED: GLYCOPYRROLATE 0.2 MG/1 ML VIAL ONE (06:58)
[2018-01-08] MEDS ORDERED: KETOROLAC 30 MG/1 ML SDV ONE (07:08)
[2018-01-08] MEDS ORDERED: HYDROCODONE/APAP 5/325 TAB PO PRN (07:34)
--- NOTE | 2018-01-08 07:37 | PDANEPAE ---
ANE Past Medical History - Cardiovascular History Hx Hypertension: No Hx Arrhythmias: No Hx Chest Pain: No Hx Coronary Artery / Peripheral Vascular Disease: No Hx Palpitations: No - Pulmonary History Hx Oxygen in Use at Home: No Hx Sleep Apnea: No - Neurologic History Hx Cerebrovascular Accident: No - Endocrine History Hx Diabetes: No Obesity: mild - Renal History Hx Renal Disorders: No - Liver History Hx Hepatic Disorders: No - Cancer History Hx Cancer: No - Chronic Pain History Chronic Pain: No - Surgical History Prior Surgeries: NO ANE Review of Systems Review of Systems: ANE Patient History - Allergies Allergies/Adverse Reactions: No Known Allergies Allergy (Verified 11/09/17 14:04) - Home Medications Home medications: home medication list seen and reviewed Home Medications: Melatonin [Melatonin 3 MG (*)] 3 mg PO HS 01/02/18 [Last Taken Unknown] QUEtiapine FUMARATE [Seroquel 300mg (*)] 300 mg PO HS 01/02/18 [Last Taken Unknown] - NPO status NPO Status: no food or drink >8 hours - Anes Hx Anes Hx: no prior problems - Smoking Hx Smoking Status: Current every day smoker - Family Anes Hx Family Hx Anesthesia Complications: NO ANE Labs/Vital Signs - Vital Signs Blood Pressure: 102/67 Heart Rate: 85 Respiratory Rate: 16 O2 Sat (%): 94 Height: 170.18 cm Weight: 90.718 kg ANE Physical Exam - Airway Neck exam: FROM Mallampati Score: Class 2 Mouth exam: normal dental/mouth exam - Pulmonary Pulmonary: no respiratory distress, no rales or rhonchi, clear to auscultation - Cardiovascular Cardiovascular: regular rate and rhythym, no murmur, rub, or gallop - ASA Status ASA Status: II ANE Anesthesia Plan Anesthesia Plan: GA with mask
--- NOTE | 2018-01-08 07:41 | PDECTPN ---
ECT Progress Note Patient Problems: Problems Problem Status Onset Code Alcohol intoxication Acute F10.929 Anxiety Acute F41.9 Tachycardia Acute R00.0 Date: 01/08/18 Treatment#: 3 ECT provider: Daniel Pinto Anesthesia: Pawan Mari Stimulus dose (%): 45 Pulse width: 0.3 ECT EMG (sec): 36 ECT EEG (sec): 66 ECT treatment type: unilateral QIDS-SR Total Score: 21 QIDS-SR Question #12 Score: 2 MMSE Total Score (Max = 21): 21 O/P psychiatrist follow up: direct communication Home medications: Medication Instructions Recorded Melatonin [Melatonin 3 MG (*)] 3 mg PO HS 01/02/18 QUEtiapine FUMARATE [Seroquel 300 mg PO HS 01/02/18 300mg (*)] Medication review: completed Current treatment plan: acute phase Treatment plan frequency: 3 times per week ECT narrative: Pt is seen for continued acute course treatment. He reports continued improvement in mood. Appears brighter on the unit despite continuing to largely isolate in his room. He asks to have the family meeting this week to discuss d/c plan. Affect remains blunted, stable. Mood is "better." TP linear. TC reveals possible paranoia. Underwent RUL ECT without complication. Will continue acute course treatment.
--- NOTE | 2018-01-08 07:53 | POSTANESTH ---
Post Anesthetic Evaluation Cardiovascular Status: Normal, Stable, Similar to Pre-Op Cond Respiratory Status: Normal, Stable, Similar to Pre-op Cond. Level of Consciousness/Mental Status: Unconscious Pain Control: Adequate, Prn Tx Ordered Nausea/Vomiting Control: Adequate, Prn Tx Ordered Complications Possibly Related to Anesthesia: None Noted
[2018-01-08] MEDS: NICOTINE 21 MG/24 HR PATCH TD SCH ×2 (11:07→17:18)
--- NOTE | 2018-01-08 14:27 | ASMTCMCOM ---
CM Note CM Note Notes: Patient was in his room sleeping after his morning ECT treatment. Staff reports that he had a headache. He will need a family meeting scheduled for this week. Date Signed: 01/08/2018 02:26 PM Electronically Signed By:Carissa Herrera
[2018-01-08] MEDS: NICOTINE POLACRILEX 2 MG GUM B PRN ×3 (17:19→19:20)
[2018-01-08] MEDS: QUEtiapine FUMARATE 50 MG TAB PO SCH (19:01)
[2018-01-08] MEDS: QUEtiapine FUMARATE 300 MG TAB PO SCH (19:02)
[2018-01-08] MEDS: MELATONIN 3 MG TAB PO SCH (19:02)
[2018-01-09] MEDS: NICOTINE 21 MG/24 HR PATCH TD SCH (08:17)
[2018-01-09] MEDS: NICOTINE POLACRILEX 2 MG GUM B PRN ×8 (08:30→19:02)
--- NOTE | 2018-01-09 10:49 | ASMTCMCOM ---
CM Note CM Note Notes: CC calls OHElana Benson at ([phone]) and confirms that she could be available for family meeting on Jan.11 at 11:30am with provider and CC. Date Signed: 01/09/2018 10:48 AM Electronically Signed By:Nathanael Ding
--- NOTE | 2018-01-09 12:35 | SOAPPROG ---
SOFELIPE Progress Note Assessment/Plan: Assessment: Plan: 01/01/18 17:04 Schizoaffective D/o: Pt states he is motivated to do ECT, though is resistant to necessary pre-treatment tests. Will continue to foster therapeutic alliance. Will proceed with ECT if he demonstrates willingness to comply. Continue meds as currently written except change PRN SQL to q4 from TID. 01/04/18 17:41 Schizoaffective D/o: No change. Tolerating ECT well. CCM. 01/09/18 12:35 Schizoaffective D/o: Improved with ECT. CCM. Subjective: Pt seen, discussed with staff. Reports feeling "better". States he is pleased with benefits from ECT thus far. Agreeable to family meeting to discuss d/c. This is scheduled for 01/11/18 at 1130. Reports no adverse effects from ECT. Cognition is good. Objective: Vital Signs Temp Pulse Resp BP Pulse Ox 36.9 C 91 16 99/61 L 94 01/08/18 07:37 01/08/18 08:31 01/08/18 08:31 01/08/18 08:31 01/08/18 08:31 01/08/18 01/09/18 01/10/18 05:59 05:59 05:59 Intake Total 500 Balance 500 MSE: Calm, coop. Affect is euthymic, stable, approp. Mood is "better." TP linear. TC reveals no psychosis. No SI/HI/. - Time Spent With Patient Time Spent With Patient: 15" ICD10 Worksheet Patient Problems: Problems Problem Status Onset Alcohol intoxication Acute Anxiety Acute Tachycardia Acute
[2018-01-09] MEDS: QUEtiapine FUMARATE 50 MG TAB PO SCH (19:01)
[2018-01-09] MEDS: MELATONIN 3 MG TAB PO SCH (19:02)
[2018-01-09] MEDS: QUEtiapine FUMARATE 300 MG TAB PO SCH (19:02)
[2018-01-10] MEDS ORDERED: ONDANSETRON DISINTEGRATING 4 MG TAB PO PRN (05:00)
[2018-01-10] MEDS ORDERED: NS 1,000 ML IV PRN (05:00)
[2018-01-10] MEDS ORDERED: CITRIC ACID/SODIUM CITRATE 30 ML UDCUP PO PRN (05:00)
[2018-01-10] MEDS: NICOTINE POLACRILEX 2 MG GUM B PRN ×4 (08:25→12:59)
[2018-01-10] MEDS: NICOTINE 21 MG/24 HR PATCH TD SCH (08:25)
--- NOTE | 2018-01-10 11:15 | ASMTCMCOM ---
CM Note CM Note Notes: The patient attended treatment team rounds, as well as, checked in with CC; he reported feeling "much better," he is going to groups, and engaging in the milieu. The patient denied feeling anxiety, SI, HI, or A/VH. He reported feeling depression although it is not prominent. The patient has a family meeting scheduled with his CC and psychiatrist on January 11 @ 11:30 to plan for discharge. The patient reported 8.5 hours of sleep overnight. He is scheduled for ECT @ 14:30 today. Date Signed: 01/10/2018 11:14 AM Electronically Signed By:Winter Daniels
[2018-01-10] MEDS ORDERED: ONDANSETRON DISINTEGRATING 4 MG TAB ONE (14:53)
[2018-01-10] MEDS ORDERED: CITRIC ACID/SODIUM CITRATE 30 ML UDCUP ONE (14:53)
--- NOTE | 2018-01-10 15:02 | PDANEPAE ---
ECT Pre Anesthetic Evaluation Allergies/Adverse Reactions: No Known Allergies Allergy (Verified 11/09/17 14:04) Patient ID confirmed: Yes H&P reviewed: Yes Pre-anesthetic history reviewed: Yes Heart: no murmur, rub, or gallop Lungs: no respiratory distress, no rales or rhonchi, clear to auscultation Mallampati Score: Class 3 ASA Status: II Home Medications: Medication Instructions Recorded Melatonin [Melatonin 3 MG (*)] 3 mg PO HS 01/02/18 QUEtiapine FUMARATE [Seroquel 300 mg PO HS 01/02/18 300mg (*)] Medication review: completed Patient interviewed: Yes Patient examined: Yes Anesthetic plan discussed with patient: Yes Anesthetic risks discussed with patient: Yes ECT Pre-Anesthetic History - Height & Weight Height: 170.18 cm Weight: 90.718 kg BMI: 31.35 - Anesthesia History Hx Anesthesia Complications (with details): No Family Hx Anesthesia Complications: NO - Tobacco/Alcohol/Drug Use Smoking Status: Current every day smoker Total Number Of Years As A Smoker: 5 Hx Drug/Substance Abuse: No Alcohol Use: Yes Alcohol Quantity: 2 drinks per day - Prior Surgeries/Hospitalizations Prior Surgeries: NO Prior Medical Hospitalizations: No - Pulmonary History ECT Hx Asthma: No Hx Abnormal Chest X-Ray: No Hx Oxygen in Use at Home: No - Cardiovascular History Hx Hypertension: No Currently Uses Hypertension Medication: No Hx Arrhythmias: No Hx Palpitations: No Hx Chest Pain: No Hx Coronary Artery / Peripheral Vascular Disease: No Hx Blood Clot: No - Neurologic History Hx Cerebrovascular Accident: No Hx CT Scan Or MRI Of The Brain: No Hx Epilepsy, Convulsions, Seizures, Or Blackouts: No Hx Frequent Or Severe Headaches: No Hx Numbness: No Hx Neurologic Disorder: No - Dental History Current Dental Issues: None - Endocrine History Hx Diabetes: No Current Daily Insulin Injections: No Hx Thyroid Problems: No - Renal/Urologic History Hx Renal Disorders: No Hx Urinary Tract Problems: No - Liver History Hx Hepatic Disorders: No - Cancer History Hx Cancer: No - Hematology History Hx Unexplained Bleeding Of Any Type: No Hx Ease Of Bruising: No Hx Anemia: No - Gastrointestinal History Hx Gastroesophogeal Reflux Disease: No Hx Ulcers: No Hx Hiatal Hernia: No Hx Difficulty Swallowing: No - Musculoskeletal Hisory Hx Chronic Pain: No Hx Arthritis: No - Opthalmic History Hx Glaucoma: No Visual Assistive Devices: Glasses Hx Opthalmic Disorders: No - Other Health History Physical Disabililty: No Recent Cough, Cold, or Fever: No Significant Weight Loss In The Last 4 Months: No Possible the Patient Might be : No
--- NOTE | 2018-01-10 15:13 | PDECTPN ---
ECT Progress Note Patient Problems: Problems Problem Status Onset Code Alcohol intoxication Acute F10.929 Anxiety Acute F41.9 Tachycardia Acute R00.0 Date: 01/10/18 ECT provider: Daniel Pinto Stimulus dose (%): 50 Pulse width: 0.3 ECT EMG (sec): 32 ECT EEG (sec): 43 ECT treatment type: unilateral QIDS-SR Total Score: 10 QIDS-SR Question #12 Score: 1 MMSE Total Score (Max = 21): 20 Next ECT date: 01/12/18 Next ECT time: 06:45 O/P psychiatrist follow up: direct communication Home medications: Medication Instructions Recorded Melatonin [Melatonin 3 MG (*)] 3 mg PO HS 01/02/18 QUEtiapine FUMARATE [Seroquel 300 mg PO HS 01/02/18 300mg (*)] Current treatment plan: acute phase Treatment plan frequency: 3 times per week ECT narrative: Pt is seen for continued acute course treatment. He reports continued improvements in mood and anxiety. More social on unit, out in the milieu frequently. Interviewed in treatment team meeting today. Affect brighter, better modulate. Mood is "better." TP linear. TC reveals possible paranoia. Underwent RUL ECT without complication. Will continue acute course treatment.
[2018-01-10] MEDS: QUEtiapine FUMARATE 50 MG TAB PO SCH (21:07)
[2018-01-10] MEDS: QUEtiapine FUMARATE 300 MG TAB PO SCH (21:07)
[2018-01-10] MEDS: MELATONIN 3 MG TAB PO SCH (21:07)
[2018-01-11] MEDS: NICOTINE POLACRILEX 2 MG GUM B PRN ×4 (09:50→14:51)
[2018-01-11] MEDS: NICOTINE 21 MG/24 HR PATCH TD SCH ×2 (09:52→10:17)
--- NOTE | 2018-01-11 12:52 | ASMTCMCOM ---
CM Note CM Note Notes: Nathanael had a family meeting with Emerson and his mom. and here is the most up to date information we got: CC checked in with ct. who reported that he is doing "great". Per family meeting Emerson is going to discharge tomorrow after ECT. He is going to be living in a host home in [place]. This is (apparently) a placement through [facility]. [facility] CW is Elizabeth Arellano [phone] Host Home is [facility] [phone]. Emerson will follow up with [facility] upon discharge . Date Signed: 01/11/2018 12:51 PM Electronically Signed By:Leonila Aguila
--- NOTE | 2018-01-11 14:39 | SOAPPROG ---
SOAP Progress Note Assessment/Plan: Assessment: Plan: 01/01/18 17:04 Schizoaffective D/o: Pt states he is motivated to do ECT, though is resistant to necessary pre-treatment tests. Will continue to foster therapeutic alliance. Will proceed with ECT if he demonstrates willingness to comply. Continue meds as currently written except change PRN SQL to q4 from TID. 01/04/18 17:41 Schizoaffective D/o: No change. Tolerating ECT well. CCM. 01/09/18 12:35 Schizoaffective D/o: Improved with ECT. CCM. 01/11/18 14:41 Schizoaffective D/o: Continued improvement. [facility]. Subjective: Pt seen, discussed with staff. Reports feeling "a lot better." Interviewed in treatment team meeting and then seen in individual session and family meeting. Mother, case manager and foster home provider present with CC and myself. Discussed d/c and f/u plans. All in agreement with d/c tomorrow after treatment , continued acute course next week with transition to weekly continuation after that if all is well. Objective: Vital Signs Temp Pulse Resp BP Pulse Ox 36.4 C 84 17 117/74 96 01/10/18 18:23 01/10/18 18:23 01/10/18 18:23 01/10/18 18:23 01/10/18 18:23 01/10/18 01/11/18 01/12/18 05:59 05:59 05:59 Intake Total 800 Balance 800 - Time Spent With Patient Time Spent With Patient: 55" ICD10 Worksheet Patient Problems: Problems Problem Status Onset Alcohol intoxication Acute Anxiety Acute Tachycardia Acute
[2018-01-11] MEDS: QUEtiapine FUMARATE 50 MG TAB PO SCH (19:32)
[2018-01-11] MEDS: MELATONIN 3 MG TAB PO SCH (19:33)
[2018-01-11] MEDS: QUEtiapine FUMARATE 300 MG TAB PO SCH (19:33)
[2018-01-12] MEDS ORDERED: CITRIC ACID/SODIUM CITRATE 30 ML UDCUP PO PRN (04:00)
[2018-01-12] MEDS ORDERED: NS 1,000 ML IV PRN (04:00)
[2018-01-12] MEDS ORDERED: ONDANSETRON DISINTEGRATING 4 MG TAB PO PRN (04:00)
[2018-01-12] MEDS ORDERED: fentaNYL 100 MCG/2 ML INJ ONE (04:32)
[2018-01-12] MEDS ORDERED: MIDAZOLAM 2 MG/2 ML VIAL ONE (04:32)
[2018-01-12] MEDS ORDERED: GLYCOPYRROLATE 0.2 MG/1 ML VIAL ONE (04:33)
[2018-01-12] MEDS ORDERED: ETOMIDATE 20 MG/10 ML VIAL ONE (04:33)
[2018-01-12] MEDS ORDERED: SUCCINYLCHOLINE CHLORIDE 200 MG/10 ML VIAL ONE (04:33)
[2018-01-12] MEDS ORDERED: ONDANSETRON 4 MG/2 ML VIAL ONE (04:33)
[2018-01-12] MEDS ORDERED: KETOROLAC 30 MG/1 ML SDV ONE (04:33)
[2018-01-12] MEDS ORDERED: PROPOFOL 200 MG/20 ML VIAL ONE (04:33)
[2018-01-12] MEDS ORDERED: ROCURONIUM 50 MG/5 ML VIAL ONE (04:33)
[2018-01-12] MEDS ORDERED: CITRIC ACID/SODIUM CITRATE 30 ML UDCUP ONE (06:31)
[2018-01-12] MEDS ORDERED: ONDANSETRON DISINTEGRATING 4 MG TAB ONE (06:31)
--- NOTE | 2018-01-12 07:09 | PDECTPN ---
ECT Progress Note Patient Problems: Problems Problem Status Onset Code Alcohol intoxication Acute F10.929 Anxiety Acute F41.9 Tachycardia Acute R00.0 Date: 01/12/18 ECT provider: Daniel Pinto Anesthesia: Heraclio Pearson Stimulus dose (%): 55 Pulse width: 0.3 ECT EMG (sec): 44 ECT EEG (sec): 60 ECT treatment type: unilateral QIDS-SR Total Score: 1 QIDS-SR Question #12 Score: 0 MMSE Total Score (Max = 21): 20 Next ECT date: 01/15/18 Next ECT time: 07:00 O/P psychiatrist follow up with : Anibal O/P psychiatrist follow up: direct communication Home medications: Medication Instructions Recorded Melatonin [Melatonin 3 MG (*)] 3 mg PO HS 01/02/18 QUEtiapine FUMARATE [Seroquel 300 mg PO HS 01/02/18 300mg (*)] Medication review: completed Current treatment plan: acute phase Treatment plan frequency: 3 times per week ECT narrative: Pt is seen for continued acute course treatment. He reports feeling "good." Excited for football season and looking forward to leaving hospital. Plan in place for new foster placement. Affect is bright, stable, approp. Mood is "good." TP linear. TC reveals less paranoia. Underwent RUL ECT without complication. Will continue acute course treatment, transitioning to outpatient after this treatment.
--- NOTE | 2018-01-12 08:32 | ASMTBHDC ---
Notes Note: Notes: CC confirmed client's discharge appts: Follow Up With: Dr. Charlie Pinto (Out-Patient ECT) [address] [place] [address] Next Appt: Monday at 7am [facility] [address] [place], [address] O# [phone] Please follow up on _January 25 (01/25/18)_ @ _12:15pm_ at the above location with Dr. Schafer for Medication Management. Please follow up on _January 23 (01/23/18)_ @ _3:15pm_ at the above location with Dora Briones (therapist) on the 2nd floor. Transfer [facility] back to [facility] Date Signed: 01/12/2018 08:32 AM Electronically Signed By:Nathanael Ding
[2018-01-12] MEDS: NICOTINE POLACRILEX 2 MG GUM B PRN (10:05)
[2018-01-12] MEDS: NICOTINE 21 MG/24 HR PATCH TD SCH (10:06)
[2018-01-12 11:18] VITALS: BP 112/66
== END 2018-01-12 11:32 | disposition home or self-care (01) | DRG 885 ==
LOC: BBEH 17:40
PROVIDERS: ADMIT Psychiatry & Neurology Psychiatry; ATTEND Psychiatry & Neurology Psychiatry
PROC: GZB0ZZZ Electroconvulsive Therapy, Unilateral-Single Seizure (ICD-10-PCS; principal; 2018-01-03)
DX: F25.1 Schizoaffective disorder, depressive type (principal); Z72.0 Tobacco use
CPT/HCPCS: J0330; J1885; J2250; J2270; J2405; J2704; J3010